=== PATIENT | female | born 1980 | race Caucasian/White ===

== ENCOUNTER 2021-11-22 10:47 | Outpatient (CLI) | payer BC, MEDICAID, SELFPAY ==
--- NOTE | 2021-11-22 11:30 | CRLHL7_ITS ---
For Patients: As a result of the Century Cures Act, medical imaging exams and procedure reports are released immediately into your electronic medical record. You may view this report before your referring provider. If you have questions, please contact your health care provider. BILATERAL MAMMOGRAM WITH COMPUTER-AIDED DETECTION AND TOMOSYNTHESIS TECHNIQUE: CC and MLO views were obtained. These mammographic images have been obtained using full-field digital technique. These mammographic images were interpreted with the benefit of computer-aided detection. Breast Tomosynthesis was used in this interpretation. COMPARISON FILM: 10/25/2020, 10/22/2019, 09/23/2018. FINDINGS: The breasts are heterogeneously dense, which may obscure small masses IMPRESSION: There is no radiographic evidence for malignancy. ASSESSMENT: BI-RADS Category 1: Negative RECOMMENDATION: Routine screening mammogram in 1 year. A lay language report of this examination will be provided to the patient. Francis Bowens M.D. Diagnostic Radiologist [email or web address] JOES R/senait sapp/Dictated by: Francis Bowens MD @ 11/22/2021 12:24:00 PM (Electronically Signed)
== END 2021-11-22 10:48 | disposition home or self-care (01) ==
LOC: MAMMO 10:49
PROVIDERS: PCP Physician Assistant Medical; Visit Provider Physician Assistant Medical
DX: Z12.31 Encounter for screening mammogram for malignant neoplasm of breast (principal); R92.2 Inconclusive mammogram
CPT/HCPCS: 77063; 77067

== ENCOUNTER 2021-12-20 20:44 | Emergency (ER) | payer BC, MEDICAID, SELFPAY ==
[2021-12-20 21:41] VITALS: BP 117/79; PULSE 63; RESP 20; TEMP 35.7; O2SAT 97; BMI 31.1
[2021-12-20] MEDS: OXYMETAZOLINE (AFRIN) SOAK 1 EACH TOPICAL (23:14)
[2021-12-20 23:20] LABS: SARS PCR* Negative SARS-CoV-2 (Negative)
--- NOTE | 2021-12-20 23:38 | ED_ITS ---
HPI - General Adult General Chief complaint: Ear/Nose/Throat Problem Stated complaint: POSSIBLE COVID,SINUS PRESSURE Time Seen by Provider: 12/20/21 21:46 History of Present Illness HPI narrative: 41yo female patient presents to the ED with acute complaints of nasal congestion, pressure, and cough for approximately 3 days. The patient denies nausea, vomiting, or diarrhea. The patient states that she has had COVID in the past, and the symptoms are similar. She is uncertain if she has had fever. She has tried no treatment prior to arrival. The patient denies known sick contact. The patient has no other acute concerns or complaints. See nursing notes for details. Related Data Home Medications Medication Instructions Recorded Confirmed diclofenac sodium 75 mg 75 mg PO PRN 12/20/21 tablet,delayed release ferrous sulfate 325 mg (65 mg 325 mg PO DAILY 12/20/21 12/20/21 iron) tablet gabapentin 300 mg capsule 300 mg Q12H PRN 12/20/21 Previous Rx's Medication Instructions Recorded cefdinir 300 mg capsule 300 mg PO BID #10 caps 12/20/21 Allergies Allergy/AdvReac Type Severity Reaction Status Date / Time venom-honey bee Allergy Verified 12/20/21 21:45 Review of Systems Const: Reports: fever, fatigue and malaise; Denies: chills or night sweats Eyes: Denies: change in vision or blurry vision ENMT: Reports: throat pain, nasal discharge and nasal congestion; Denies: throat swelling, difficulty swallowing, mouth pain, ear pain or vertigo Cardio: Reports: shortness of breath with exertion; Denies: chest pain, palpitations, swelling of feet/ankles, shortness of breath when lying down or bluish discoloration of hands/feet Resp: Reports: shortness of breath and cough; Denies: wheezing or chest congestion GI: Denies: abdominal pain, nausea, vomiting, diarrhea, constipation or difficulty swallowing Integ/Breast: Denies: rash or redness Neuro: Reports: headache; Denies: numbness in extremities, weakness in extremities, lack of coordination, dizziness, vertigo or difficulty communicating thoughts Psych: Denies: anxiety Endo: Reports: fatigue; Denies: excessive urination Allergy/Immuno: Denies: throat swelling or wheezing PFSH PFSH Social History Smoking Status: Never smoker Do you use any of these nicotine containing products: None Second hand tobacco smoke exposure: No How often do you have a drink containing alcohol: never AUDIT-C Alcohol total score: 0 Non-prescribed substance use: denies use Exam Const: Vital Signs, click to edit/add: Vital Signs - 24 hr 12/20/21 21:41 Temperature 96.3 F L Pulse Rate [Right Pulse Oximeter] 63 Respiratory Rate 20 Blood Pressure [Ri ght Upper Arm] 117/79 Pulse Oximetry 97 Oxygen Delivery Me thod Room Air Documenting provider has reviewed patient's vital signs: yes Common normals: no apparent distress, oriented x3, no limitations, healthy appearing, alert and well nourished General appearance: cooperative, comfortable and ill appearing; not in distress Orientation/consciousness: Yes awake, Yes oriented to person, Yes oriented to place and Yes oriented to time HENMT: Common normals: normocephalic, head/scalp atraumatic, hearing grossly normal bilaterally, TM's normal bilaterally (with air fluid levels bilaterally without erythema, but bulge noted), external nose normal and nasal mucous membranes and turbinates normal Head and scalp: normal to inspection, normocephalic and atraumatic Nose: external nose normal and nasal mucous membranes and turbinates normal Tympanic membrane: TM's normal bilaterally (with air fluid levels bilaterally without erythema, but bulge noted) Mouth: oral and palatal mucosa normal Throat: posterior oropharynx normal Eye: Common normals: PERRL and EOMs intact bilaterally General eye: normal appearance of both eyes Pupil: PERRL Neck & C-Spine: Common normals: full ROM, no lymphadenopathy and supple Resp: Common normals: normal respiratory effort, no use of accessory muscles and clear to auscultation bilaterally Effort & inspection: able to speak in complete sentences; no respiratory distress Auscultation: clear to auscultation bilaterally; no crackles and no wheezes Cardio: Common normals: regular rate, regular rhythm, S1 normal heart sound, S2 normal heart sound, no gallops, no murmurs and peripheral pulses 2+ throu ghout Rate: regular rate Rhythm: regular rhythm Heart sounds: S1 normal and S2 normal Peripheral pulses: pulses 2+ throughout GI: Common normals: Normal to inspection, nondistended, normoactive bowel sounds present, soft to palpation and non-tender Palpation: soft Extremity: Common normals: normal to inspection, full ROM and normal capillary refill Neuro: Common normals: oriented x3, CN's II-XII intact bilaterally, moves all extremities, no focal motor deficits and no sensory deficits noted Sensorium/orientation: awake, alert, oriented to person, oriented to place and oriented to time Speech: speech normal Gait (neuro): normal gait Motor exam: strength 5/5 throughout Psych: Common normals: mental status grossly normal, thought process normal, speech normal and activity/motor behavior normal Appearance: grossly normal Attitude: calm Speech: normal speech Thought process: normal thought process Thought content: normal thought content Attention/concentration: attention grossly intact Memory/cognition: memory grossly intact Insight: insight good Judgement: judgment good Skin: Common normals: no rashes or lesions noted General skin exam: no rashes or lesions noted Course Reevaluation(s) Reevaluation #1: Patient reports some improvement in symptoms with afrin. Patient's vital signs have remained stable. The results were discussed, and the patient verbalized understanding. Reasons for follow-up or return were discussed. Vital Signs Vital signs: Initial Vital Signs Temperature 96.3 F L 12/20/21 21:41 Temperature Source Temporal Artery Scan 12/20/21 21:41 Pulse Rate 63 12/20/21 21:41 Respiratory Rate 20 12/20/21 21:41 Blood Pressure 117/79 12/20/21 21:41 Blood Pressure Mean 91 12/20/21 21:41 Blood Pressure Position Sitting 12/20/21 21:41 Pulse Oximetry 97 12/20/21 21:41 Oxygen Delivery Method 12/20/21 21:41 Vital Signs Temperature 96.3 F L 12/20/21 21:41 Pulse Rate 63 12/20/21 21:41 Respiratory Rate 20 12/20/21 21:41 Blood Pressure 117/79 12/20/21 21:41 Pulse Oximetry 97 12/20/21 21:41 Oxygen Delivery Method 12/20/21 21:41 Temperature 96.3 F L 12/20/21 21:41 Pulse Rate 63 12/20/21 21:41 Respiratory Rate 20 12/20/21 21:41 Blood Pressure 117/79 12/20/21 21:41 Pulse Oximetry 97 12/20/21 21:41 Oxygen Delivery Method 12/20/21 21:41 Medical Decision Making MDM Narrative Medical decision making narrative: Differential diagnoses include viral upper respiratory illness, pneumonia, infectious illness, bronchitis, asthma, reactive airway disease, chronic cough, medications side effects, allergic rhinitis with postnasal drip, foreign body aspiration, aspiration, bronchiolitis, and gastroesophageal reflux disease as well as multiple other considerations including chronic disease exacerbations. Lab Data Labs: Lab Results 12/20/21 Range/Units 21:46 SARS-CoV-2 (PCR) Negative SARS-CoV-2 (Negative) Discharge Plan Discharge Clinical Impression: Otitis media Patient Disposition: Home, Self-Care Condition: Stable Instructions: Ear Infection (ED) Additional Instructions: Thank you for choosing [facility]. We plan to treat with antibiotics should you not improve with attempting decongestant therapy. You should aggressively treat symptoms with: rest, increased fluids, and Ibuprofen and Tylenol as needed, and OTC medication of choice. You should eat and drink to ensure adequate intake. The patient is asked to return if developing respiratory distress, inability to eat or drink, decreased urine output, or other new/worsening symptoms develop. Additional discussion regarding the course of the illness, as well as helpful treatments, including use of a vaporizer/humidifier, steamed bathroom, or cool outdoor air. Arrange follow up visit if worsening or no improvement in symptoms in 1-2 weeks. The patient is asked to return if develops warning signs including fever >100.4, respiratory distress, lethargy, failure to hydrate with PO intake, or decreased urine output. Your care today was on an emergency basis and is not intended to be a substitute for on-going care with your primary physician. I recommend calling primary care for follow-up in the next 5-7 days for follow-up as needed and to review any labs, testing, or imaging you have had in the Emergency Department. If new or worsening symptoms develop or you have any concerns in the meantime, please call your primary care clinic or return to the ER for re-evaluation. Activity Level: No Restrictions and Activity as Tolerated Discharge Diet: Regular Prescriptions: New cefdinir 300 mg capsule 300 mg PO BID Qty: 10 0RF No Action ferrous sulfate 325 mg (65 mg iron) tablet 325 mg PO DAILY Label Comments: TAKE 1 TABLET BY MOUTH ONCE DAILY WITH A MEAL. gabapentin 300 mg capsule 300 mg Q12H PRN diclofenac sodium 75 mg tablet,delayed release (DR/EC) 75 mg PO PRN Follow Up/Referrals: Brianda Burleson PA-C [Primary Care Provider] - Stand Alone Forms: [employer] Info Instructions
== END 2021-12-20 23:57 | disposition home or self-care (01) ==
PROVIDERS: Emergency Provider Family Medicine; PCP Physician Assistant Medical
DX: H66.93 Otitis media, unspecified, bilateral (principal)
CPT/HCPCS: 87635; 99283; 99284

== ENCOUNTER 2022-08-29 10:26 | Outpatient (CLI) | payer BC, MEDICAID, SELFPAY ==
--- NOTE | 2022-08-29 10:45 | CRLHL7_ITS ---
For Patients: As a result of the Cures Act, medical imaging exams and procedure reports are released immediately into your electronic medical record. You may view this report before your referring provider. If you have questions, please contact your health care provider. DIGITAL DIAGNOSTIC BILATERAL MAMMOGRAM USING TOMOSYNTHESIS AND COMPUTER-AIDED DETECTION RIGHT BREAST ULTRASOUND INDICATION: 42-year-old female. Palpable lump inferior RIGHT breast. Family history of breast cancer. No personal history of breast cancer biopsies. COMPARISON: 11/22/2021, 10/25/2020. MAMMOGRAM: TECHNIQUE: CC and MLO views were obtained. This digital study was evaluated with the assistance of computer-aided detection. Digital breast tomosynthesis utilized. FINDINGS: Breast Composition: The breasts are heterogeneously dense which may obscure small masses. No suspicious microcalcifications or regions of architecture distortion identified in either breast. No mass identified in the inferior RIGHT breast in the area of the patient`s palpable abnormality. Ultrasound will be performed for further evaluation. Please see ultrasound report from the same date. The LEFT breast is negative and unchanged. IMPRESSION: Stable and negative mammograms. ULTRASOUND TECHNIQUE: Directed RIGHT breast ultrasound with this radiologist present. FINDINGS/IMPRESSION: The RIGHT breast is carefully scanned between the 5 and 7 o`clock position. Admeasurer images were obtained at the 6 o`clock position. Only normal breast tissue is identified. No underlying mass. No regions of architecture distortion. No shadowing. No cyst. These findings were discussed in detail with the patient. Any further workup or follow-up should be based on clinical grounds. Annual mammography is also recommended. BI-RADS Category 1: Negative Dictated by: Deepak Cyr MD @08/29/2022 11:50:34 AM / CRL:senait sapp/Dictated by: Deepak Cyr MD @ 08/29/2022 11:49:00 AM (Electronically Signed)
--- NOTE | 2022-08-29 11:15 | CRLHL7_ITS ---
For Patients: As a result of the Cures Act, medical imaging exams and procedure reports are released immediately into your electronic medical record. You may view this report before your referring provider. If you have questions, please contact your health care provider. PLEASE SEE DIGITAL DIAGNOSTIC BILATERAL MAMMOGRAM PERFORMED SAME DAY CRL:senait sapp/Dictated by: Deepak Cyr MD @ 08/29/2022 11:50:00 AM (Electronically Signed)
== END 2022-08-29 10:27 | disposition home or self-care (01) ==
LOC: MAMMO 10:27
PROVIDERS: PCP Physician Assistant Medical; Visit Provider Physician Assistant Medical
DX: N63.10 Unspecified lump in the right breast, unspecified quadrant (principal); N64.4 Mastodynia
CPT/HCPCS: 76642; 77066; G0279

== ENCOUNTER 2023-05-02 10:36 | Emergency (ER) | payer OTHER, MEDICAID, SELFPAY ==
[2023-05-02 10:39] VITALS: BP 117/83; PULSE 86; RESP 16; TEMP 36.2; O2SAT 99; BMI 31.1
--- NOTE | 2023-05-02 11:32 | ED.EAR ---
HPI - Ear Problem General Time Seen by Provider: 11:32 Date Seen: 05/02/23 Chief complaint: Ear/Nose/Throat Problem Stated complaint: R ear pain Time Seen by Provider: 05/02/23 11:32 Source: patient and RN notes reviewed Mode of arrival: ambulatory Limitations: no limitations History of Present Illness HPI Narrative: Suad is a very pleasant 42-year-old female with recent history of dental work with cavities a crown and right canal 1 week ago who comes to the emergency room with complaints of right ear pain. Patient notes that she awoke yesterday morning with some ear pain and has become much worse. It is associated with a slightly runny nose and sore throat on her right side. She also notes a low-grade fever today. She notes no complications from the dental surgery. She notes that she did have some jaw pain before the ear pain. She thinks she may have had some drainage from her right ear as well. Denies a cough. She is able to swallow even though she has discomfort on the right. Related Data Home Medications Medication Instructions Recorded Confirmed gabapentin 300 mg capsule 300 mg Q12H PRN 12/20/21 05/10/22 loratadine 5 mg-pseudoephedrine ER ea PO 01/20/22 05/10/22 120 mg tablet,extended release,12hr (Allergy Relief D12) Acetaminophen PO PRN 01/30/22 05/10/22 ibuprofen 200 mg tablet mg PO PRN 01/30/22 05/10/22 naproxen 500 mg tablet mg PO .Daily as needed PRN 01/30/22 05/10/22 Previous Rx's Medication Instructions Recorded diclofenac sodium 75 mg 75 mg PO DAILY PRN bck p #90 tabs 01/30/22 tablet,delayed release epinephrine 0.3 mg/0.3 mL 0.3 mg (0.3 mL) IM .prn #2 ea 08/21/22 injection, auto-injector omeprazole 20 mg capsule,delayed 20 mg PO QDAY PRN GERD #90 caps 08/21/22 release ferrous sulfate 325 mg (65 mg 325 mg PO DAILY #90 tabs 03/19/23 iron) tablet amoxicillin 875 mg-potassium 1 tab PO BID #7 tabs 05/02/23 clavulanate 125 mg tablet Allergies Allergy/AdvReac Type Severity Reaction Status Date / Time venom-honey bee Allergy Severe Anaphylaxis Verified 08/21/22 14:46 Review of Systems Status of ROS: Reports: 10 or more systems reviewed and unremarkable except as noted in History and below Const: Reports: fever and chills Eyes: Denies: change in vision ENMT: Reports: throat pain, difficulty swallowing, mouth pain, ear pain, ear discharge and nasal congestion; Denies: neck pain, throat swelling, hoarseness or swelling of lips/tongue Cardio: Denies: chest pain or shortness of breath with exertion Resp: Denies: shortness of breath or cough GI: Reports: difficulty swallowing; Denies: abdominal pain, nausea or vomiting Musculo: Denies: neck pain Neuro: Reports: headache Allergy/Immuno: Denies: throat swelling PFSH PFSH Medical History Alopecia ?L65.9 - Nonscarring hair loss, unspecified (ICD-10) Uterine leiomyoma ?D25.9 - Leiomyoma of uterus, unspecified (ICD-10) Poor historian ?Z78.9 - Other specified health status (ICD-10) 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) History of pre-eclampsia (2014) ?Z87.59 - Personal history of other complications of , childbirth and the puerperium (ICD-10) History of ovarian cyst (09/2020) ?Z87.42 - Personal history of other diseases of the female genital tract (ICD-10) History of infertility (09/2020) ?Z87.42 - Personal history of other diseases of the female genital tract (ICD-10) History of gestational diabetes mellitus (GDM) (2014) ?Z86.32 - Personal history of gestational diabetes (ICD-10) Hemorrhagic cyst of ovary ?N83.209 - Unspecified ovarian cyst, unspecified side (ICD-10) Advanced maternal age during (09/04/14) Hx of anaphylaxis ?Z87.892 - Personal history of anaphylaxis (ICD-10) Surgical History History of tubal ligation (01/15/15) ?Z98.51 - Tubal ligation status (ICD-10) History of elective (2000) ?Z98.890 - Other specified postprocedural states (ICD-10) History of section (01/15/15) ?Z98.891 - History of uterine scar from previous surgery (ICD-10) Family History Aunt Breast cancer Mother Diabetes Coronary artery disease Paternal Grandfather Diabetes High cholesterol Stroke Maternal Grandfather Coronary artery disease Diabetes Stroke Father Diabetes High cholesterol High blood pressure FH: stomach cancer Sister Breast cancer, Onset Age: 30 Social History Smoking Status: Never smoker Do you use any of these nicotine containing products: None Second hand tobacco smoke exposure: No How often do you have a drink containing alcohol: never AUDIT-C Alcohol total score: 0 Non-prescribed substance use: denies use Little interest or pleasure in doing things: not at all Feeling down, depressed, or hopeless: not at all Exam Narrative: Exam Narrative: Alert and oriented. She is nontoxic in appearance. Eyes are clear. Left TM within normal limits. Right TM shows some retraction and loss of light reflex but I do not see any obvious infection. The ear canal itself is without lesions or debris. Patient did have discomfort with external movement of the ear. Neck is supple. I do not palpate any lymphadenopathy. Oral cavity with moist mucous membranes. In the posterior oropharynx she does have some exudate noted on the left posterior tonsil. No trismus with this exam. No foul smell. No extensive erythema. Heart with regular rate and rhythm and lungs are clear to auscultation. In the oral cavity if I palpate over the right lower dental line she does have discomfort although visually I cannot detect any unusual erythema or areas of swelling. Const: Vital Signs, click to edit/add: Vital Signs - 24 hr 05/02/23 10:39 Temperature 97.2 F L Pulse Rate [Pulse Oximeter] 86 Respiratory Rate 16 Blood Pressure [Ri ght Upper Arm] 117/83 Pulse Oximetry 99 Oxygen Delivery Me thod Room Air Documenting provider has reviewed patient's vital signs: yes Course Course ED Course: At this time suspect either patient has overlying viral infection or strep with a coincidence that she had dental work or she has a dental infection with radiation of the discomfort to the right ear. I have discussed with patient the use of Augmentin as an antibiotic to cover a potential strep or dental infection. It may be that she has COVID or influenza or RSV but I would still want to cover the dental infection as she has discomfort on the right side. She is in agreement with this plan. We will not have her wait for results but go ahead and allow her depart and call her with the results. Vital Signs Vital signs: Initial Vital Signs Temperature 97.2 F L 05/02/23 10:39 Temperature Source Temporal Artery Scan 05/02/23 10:39 Pulse Rate 86 05/02/23 10:39 Respiratory Rate 16 05/02/23 10:39 Blood Pressure 117/83 05/02/23 10:39 Blood Pressure Mean 94 05/02/23 10:39 Blood Pressure Position Sitting 05/02/23 10:39 Pulse Oximetry 99 05/02/23 10:39 Oxygen Delivery Method Room Air 05/02/23 10:39 Vital Signs Temperature 97.2 F L 05/02/23 10:39 Pulse Rate 86 05/02/23 10:39 Respiratory Rate 16 05/02/23 10:39 Blood Pressure 117/83 05/02/23 10:39 Pulse Oximetry 99 05/02/23 10:39 Oxygen Delivery Method Room Air 05/02/23 10:39 Temperature 97.2 F L 05/02/23 10:39 Pulse Rate 86 05/02/23 10:39 Respiratory Rate 16 05/02/23 10:39 Blood Pressure 117/83 05/02/23 10:39 Pulse Oximetry 99 05/02/23 10:39 Oxygen Delivery Method Room Air 05/02/23 10:39 Medical Decision Making MDM Narrative Medical decision making narrative: 1. Right otalgia-patient noted have discomfort with movement of the right ear but there is no evidence of debris within the ear and there is no evidence of significant otitis media. I wonder if this is radiation of discomfort from recent dental surgery as we now learned that her strep and viral swabs are negative. Would have her use Augmentin 875 p.o. b.i.d. x7 days. Patient tells me that she already has an appointment on May 08 with the dentist. They may want to extend her antibiotics at that time if needed. Suggest alternating ibuprofen and Tylenol as needed for discomfort. Return to the emergency room for worsening symptoms and as needed. At this time patient noted to be able to swallow, has no trismus, no significant palpable mass or lymphadenopathy to suggest the need for imaging. However if she does return this may be considered. 2. Disposition-home at this time. Return as needed for worsening symptoms. Medical Records Medical records reviewed: Yes I reviewed the patient's medical records Lab Data Lab results reviewed: Yes I reviewed the patient's lab results Labs: Lab Results 05/02/23 Range/Units 11:50 Group A Strep DNA NOT DETECTED (Not Detectd) Discharge Plan Discharge Clinical Impression: Acute pain of right ear Patient Disposition: Home, Self-Care Condition: Unchanged Instructions: Earache (ED) Additional Instructions: Suggest alternating ibuprofen and Tylenol every 4 hours for fever or pain relief. Augmentin will be used for potential treatment of early ear infection versus dental infection. This would also cover a strep infection. I will call you with the results of your swabs. Please ensure that the nurses have your correct phone number. Rest, seek medical attention for worsening symptoms. Prescriptions: New amoxicillin-pot clavulanate 875-125 mg tablet 1 tab PO BID Qty: 7 0RF No Action Allergy Relief D12 5-120 mg tablet extended release 12 hr PO Patient Comments: TAKE 1 TABLET BY MOUTH TWICE NENA. Acetaminophen PO PRN ibuprofen 200 mg tablet PO PRN naproxen 500 mg tablet PO .Daily as needed PRN diclofenac sodium 75 mg tablet,delayed release (DR/EC) 75 mg PO DAILY PRN (Reason: bck p) Qty: 90 1RF Rx Instructions: once daily as needed for back pain omeprazole 20 mg capsule,delayed release(DR/EC) 20 mg PO QDAY PRN (Reason: GERD) Qty: 90 1RF epinephrine 0.3 mg/0.3 mL auto-injector 0.3 mg IM .prn Qty: 2 1RF Rx Instructions: as a single dose; may repeat once gabapentin 300 mg capsule 300 mg Q12H PRN ferrous sulfate 325 mg (65 mg iron) tablet 325 mg PO DAILY Qty: 90 0RF Follow Up/Referrals: Brianda Burleson PA-C [Primary Care Provider] - Stand Alone Forms: [employer] Info Instructions
--- OUTSIDE RECORDS SUMMARY | 2023-05-02 11:54 | XMS_ITS | Continuity of Care Document ---
Author Name Unknown Organization [facility] Address [address] [place] [address] Phone Care Team Providers Care Senior Asp Net Developer Name Role Phone Ashlee Cummins Unavailable Unavailable Allergies, Adverse Reactions, Alerts Substance Reaction Status Criticality venom-honey bee Active No Informati on Medications Medication Instructions Dosage Effective Dates (start - stop) Status Comments DICLOFENAC SOD EC 75 MG TAB TAKE 1 TABLET BY ORAL ROUTE UP TO 2 TIMES PER DAY WITH FOOD - Active Medrol (Rupert) 4 mg tablets in a dose pack take by Oral route as written on package Not Available - Active Neurontin 300 mg capsule TAKE 1 CAPSULE BY MOUTH EVERYDAY AT BEDTIME - Active prednisone 10 mg tablet take 4 tabs once daily x 5 days, 2 tabs once daily x 7 days, 1 tab once daily x 10 days. Take with food. - Active Mobic 15 mg tablet take 1 tablet by oral route every day with food - Active PRILOSEC (unknown strength) Not Available - Active TYLENOL (unknown strength) Not Available - Active diclofenac sodium 75 mg tablet,delayed release take 1 tablet by oral route up to 2 times per day with food - No Longer Active Procedures Procedure Date OFFICE/OUTPATIENT VISIT EST Phone Office/Outpatient Visit,Est, Mod 2022 Office/Outpatient Visit,Est, Mod 2021 Office/Outpatient Visit,Est, Mod 2020 Office/Outpatient Visit,Est, Mod 2019 Office/Outpatient Visit,Est, Mod 2018 Office/Outpatient Visit,Est, Mod 2018 Office/Outpatient Visit,Est, Mod 2018 Office/Outpatient Visit,Est, Mod 2016 X-Ray Exam Lwr Spine, Min 4 Views Office/Outpatient Visit,Est, Mod 2016 Office/Outpatient Visit,Est, Mod 2015 Office/Outpatient Visit,New, Mod 2015 Advance Directives Directive Yes / No Effective Date File Name No Information Encounters Encounter Description Practice Location Reason(s) For Visit Diagnoses Date Provider Providers Copied on Encounter [facility], [address], [place], [address] , [place] tel: [phone] No Information 3 [facility]. [facility], [address], [place], [address] , [place]. tel: [phone] [facility], [address], [place], [address] , [place] tel: [phone] [facility] No Information 3 [facility]. [facility], [address] [place] [address] [address], [place], [address] , [place]. tel: [phone] [facility], [address], [place], [address] , [place] tel: [phone] [facility] No Information 3 [facility]. [facility], [address] [place] [address] 600, [place], [address] , [place]. tel:[phone] OFFICE/OUTPAT IENT VISIT EST Phone [facility], [address], [place], [address] , [place] tel: [phone] [facility] Other intervertebral disc degeneration of lumbar regionOther spondylosis, lumbosacral region 3 [facility]. [facility], [address] [facility] [address], [place], [address] , [place]. tel: [phone] Referring Provider: Ashlee Lombardo, [facility] [address], [place], [address] . tel:[phone] Office/Outpat ient Visit,Est, Mod [facility], [address], [place], [address] , [place] tel: [phone] [facility] Other intervertebral disc degeneration of lumbar regionOther spondylosis, lumbosacral region 3 Ernie Rosado. [facility], [address] [place] [address] [address], [place], [address] , [place]. tel: [phone] Referring Provider: Ashlee Lombardo, [facility] [place] [address], [place], [address] . tel:[phone] Office/Outpat ient Visit,Est, Mod [facility], [address], [place], [address] , [place] tel: [phone] [facility] Other intervertebral disc displacement, lumbar regionOther intervertebral disc degeneration of lumbar regionOther spondylosis, lumbosacral region 2 Ernie Rosado. [facility], [address] [place] [address] [address], [place], [address] , [place]. tel: [phone] Referring Provider: Ashlee Lmobardo, [facility] [address], [place], [address] . tel:[phone] Office/Outpat ient Visit,Est, Mod [facility], [address], [place], [address] , [place] tel: [phone] [facility] Other intervertebral disc degeneration of lumbar regionOther intervertebral disc displacement, lumbar regionOther spondylosis, lumbosacral region 1 Ernie Rosado. [facility], [address], [place], [address] , [place]. tel: [phone] Referring Provider: Ashlee Lombardo, [facility] [address] [place] [address], [place], [address] . tel:[phone] Office/Outpat ient Visit,Est, Mod [facility], [address], [place], [address] , [place] tel: [phone] [facility] Other intervertebral disc displacement, lumbar regionOther intervertebral disc degeneration of lumbar regionOther spondylosis, lumbosacral region 0- 0 Ernie Geeher. [facility] [place], [address], [facility] [place], [address] , [place]. tel: [phone] Referring Provider: Ashlee Lombardo, [facility] [place] [address], [place], [address] . tel:[phone] Office/Outpat ient Visit,Est, Mod [facility], [address], [place], [address] , [place] tel: [phone] [facility] Other intervertebral disc displacement, lumbar regionOther intervertebral disc degeneration of lumbar region 9 Ernie Rosado. [facility], [address] [place] [address] [address], [place], [address] , [place]. tel: [phone] Referring Provider: Ashlee Lombardo, [facility] [address] [place] [address] [address], [place], [address] . tel:[phone] Office/Outpat ient Visit,Est, Mod [facility], [address], [place], [address] , [place] tel: [phone] [facility] Other intervertebral disc displacement, lumbar regionOther intervertebral disc degeneration of lumbar region 9 Ernie Rosado. [facility] [place], [address] [place] [address] [address], [place], [address] , [place]. tel: [phone] Referring Provider: Ashlee Lombardo, [facility] [address], [place], [address] . tel:[phone] Office/Outpat ient Visit,Est, Mod [facility], [address], [place], [address] , [place] tel: [phone] [facility] Other intervertebral disc degeneration of lumbar regionOther intervertebral disc displacement, lumbar region 9 Ernie Rosado. [facility] [place], [address], [place], [address] , [place]. tel: [phone] Referring Provider: Ashlee Lombardo, [facility] [place] [address], [place], [address] . tel:[phone] Office/Outpat ient Visit,Est, Mod [facility], [address], [place], [address] , [place] tel: [phone] [facility] Other intervertebral disc displacement, lumbar regionOther intervertebral disc degeneration of lumbar regionSacroiliitis 7 Ernie Rosado. [facility] [place], [address], [place], [address] , [place]. tel: [phone] Referring Provider: Ashlee Lombardo, [facility] [place] [address], [place], [address] . tel:[phone] Office/Outpat ient Visit,Est, Mod [facility], [address], [place], [address] , [place] tel: [phone] [facility] Other intervertebral disc displacement, lumbar region 7 Ernie Rosado. [facility] [place], [address] [place] [address] 600, [place], [address] , [place]. tel: [phone] Referring Provider: Referring Self, [address] [place] [address] [address], [place], [address]. tel:[phone] Office/Outpat ient Visit,Est, Mod [facility], [address], [place], [address] , [place] [phone] [facility] Other intervertebral disc displacement, lumbar region 6 Ernie Rosado. [facility], [address], [place], [address] , [place]. [phone] Referring Provider: Ashlee Lombardo, [facility] [address] [place] [address], [facility] [place], [address] . tel:[phone] Office/Outpat ient Visit,New, Mod [facility], [address], [place], [address] , [place] [phone] [facility] Other intervertebral disc displacement, lumbar regionRadiculopathy , lumbar region 6 Ernie Rosado. [facility], [address], [facility], [address] , [place]. [phone] Referring Provider: Atiya Petersen, [facility] [address] [place], [address]. tel:[phone] Family History Family Member Type Diagnosis Age At Onset No Information Payers Payer name Insurance type Covered green [place] [id number] [place] [id number] [facility] 2021 CI [id number] Social History Type Description Quantity Date Captured Comments Sex Female Smoking Status No Information Chief Complaint And Reason For Visit No Information Reason For Referral Reason For Referral No Information Plan Of Treatment Date Type Action Status Future Order: Radiology Order Fa cet Joint Block Lumbar (FECETJNTBLKLUM), Ordered on: Ordered Future Order: Radiology Order AP -[id number]-[id number]-Cnp Lum (APLatFlExL), Ordered on: Ordered History Of Present Illness Encounter Date Complaint History Of Prese nt Illness No Information Functional Status Date Functional Assessmen t No Information Instructions Date Instruction Additional Infor amarjit Weight Management Education Rela darnell to Overweight Weight management: I nstructed to return to General Practitioner timeframe: 1 Month. Related to Overweight Weight Management Education Rela darnell to Overweight Weight management: I nstructed to return to General Practitioner timeframe: 1 Month. Related to Overweight Weight Management Education Rela darnell to Overweight Weight management: I nstructed to return to General Practitioner timeframe: 1 Month. Related to Overweight Weight Management Education Rela darnell to Overweight Weight management: I nstructed to return to General Practitioner timeframe: 1 Month. Related to Overweight Assessments Type Assessment Date No Information Patient Care Teams Name Effective Dates (start - stop) Status Members No Information
--- OUTSIDE RECORDS SUMMARY | 2023-05-02 11:54 | XMS_ITS | Continuity of Care Document ---
Author Name Unknown Organization [facility] Address [address] [place] [address] Phone Care Team Providers Care Mental Health Practitioner Name Role Phone Ashlee Cummins Unavailable Unavailable [...] [place], [address], [place], [address] , [place] tel: [phone] No Information 3 [facility]. [facility], [address], [place], [address] , [place]. tel: [phone] [facility], [address], [place], [address] , [place] tel: [phone] [facility] No Information 3 [facility]. [facility], [address] [place] [address] 600, [place], [address] , [place]. tel: [phone] [facility], [address], [place], [address] , [place] tel: [phone] [facility] No Information 3 [facility]. [facility], [address] [place] [address] 600, [place], [address] , [place]. tel:[phone] OFFICE/OUTPAT IENT VISIT EST Phone [facility], [address], [place], [address] , [place] tel: [phone] [facility] Other intervertebral disc degeneration of lumbar regionOther spondylosis, lumbosacral region 3 [facility]. [facility], [address] [facility] [address], [place], [address] , [place]. tel: [phone] Referring Provider: Ashlee Lombardo, [facility] [address] [facility] [address], [place], [address] . tel:[phone] Office/Outpat ient Visit,Est, Mod [facility], [address], [place], [address] , [place] tel: [phone] [facility] Other intervertebral disc degeneration of lumbar regionOther spondylosis, lumbosacral region 3 Ernie Rosado. [facility], [address] [place] [address] 600, [place], [address] , [place]. tel: [phone] Referring Provider: Ashlee Lombardo, [facility] [place] [address], [place], [address] . tel:[phone] Office/Outpat ient Visit,Est, Mod [facility], [address], [place], [address] , [place] tel: [phone] [facility] Other intervertebral disc displacement, lumbar regionOther intervertebral disc degeneration of lumbar regionOther spondylosis, lumbosacral region 2 Ernie Rosado. [facility], [address] [place] [address] 600, [place], [address] , [place]. tel: [phone] Referring Provider: Ashlee Lombardo, [facility] [address] [facility] [address], [place], [address] . tel:[phone] Office/Outpat ient Visit,Est, Mod [facility], [address], [place], [address] , [place] tel: [phone] [facility] Other intervertebral disc degeneration of lumbar regionOther intervertebral disc displacement, lumbar regionOther spondylosis, lumbosacral region 1 Ernie Rosado. [facility], [address] [facility] [address], [place], [address] , [place]. tel: [phone] Referring Provider: Ashlee Lombardo, [facility] [address] [place] [address], [place], [address] . tel:[phone] Office/Outpat ient Visit,Est, Mod [facility], [address], [place], [address] , [place] tel: [phone] [facility] Other intervertebral disc displacement, lumbar regionOther intervertebral disc degeneration of lumbar regionOther spondylosis, lumbosacral region 0- 0 Ernie Geeher. [facility] [place], [address], [facility], [address] , [place]. tel: [phone] Referring Provider: Ashlee Lombardo, [facility] [place] [address], [place], [address] . tel:[phone] Office/Outpat ient Visit,Est, Mod [facility], [address], [place], [address] , [place] tel: [phone] [facility] Other intervertebral disc displacement, lumbar regionOther intervertebral disc degeneration of lumbar region 9 Ernie Rosado. [facility], [address] [place] [address] 600, [place], [address] , [place]. tel: [phone] Referring Provider: Ashlee Lombardo, [facility] [address] [place] [address] 600, [place], [address] . tel:[phone] Office/Outpat ient Visit,Est, Mod [facility], [address], [place], [address] , [place] tel: [phone] [facility] Other intervertebral disc displacement, lumbar regionOther intervertebral disc degeneration of lumbar region 9 Ernie Rosado. [facility] [place], [address] [place] [address] 600, [place], [address] , [place]. tel: [phone] Referring Provider: Ashlee Lombardo, [facility] [address], [place], [address] . tel:[phone] Office/Outpat ient Visit,Est, Mod [facility], [address], [place], [address] , [place] tel: [phone] [facility] Other intervertebral disc degeneration of lumbar regionOther intervertebral disc displacement, lumbar region 9 Ernie Rosado. [facility] [place], [address], [place], [address] , [place]. tel: [phone] Referring Provider: Ashlee Lombardo, [facility] [place] [address], [place], [address] . tel:[phone] Office/Outpat ient Visit,Est, Mod [facility], [address], [place], [address] , [place] tel: [phone] [facility] Other intervertebral disc displacement, lumbar regionOther intervertebral disc degeneration of lumbar regionSacroiliitis 7 Ernie Rosado. [facility] [place], [address], [place], [address] , [place]. tel: [phone] Referring Provider: Ashlee Lombardo, [facility] [place] [address], [place], [address] . tel:[phone] Office/Outpat ient Visit,Est, Mod [facility], [address], [place], [address] , [place] tel: [phone] [facility] Other intervertebral disc displacement, lumbar region 7 Ernie Rosado. [facility] [place], [address] [place] [address] 600, [place], [address] , [place]. tel: [phone] Referring Provider: Referring Self, [address] [place] [address] [address], [place], [address]. tel:[phone] Office/Outpat ient Visit,Est, Mod [facility], [address], [place], [address] , [place] [phone] [facility] Other intervertebral disc displacement, lumbar region 6 Ernie Rosado. [facility], [address] [facility] [address], [place], [address] , [place]. [phone] Referring Provider: Ashlee Lombardo, [facility] [address] [facility] [address], [place], [address] . tel:[phone] Office/Outpat ient Visit,New, Mod [facility], [address], [place], [address] , [place] [phone] [facility] Other intervertebral disc displacement, lumbar regionRadiculopathy , lumbar region 6 Ernie Rosado. [facility], [address] [facility] [address], [facility] [place], [address] , [place]. [phone] Referring Provider: Atiya Petersen, [facility] [address] [place], [address]. tel:[phone] Family History Family Member Type Diagnosis Age At Onset No Information Payers Payer name Insurance type Covered alliance [place] [id number] [place] State [id number] [facility] 2021 CI [id number] Social History Type Description Quantity Date Captured Comments Sex Female Smoking Status No Information Chief Complaint And Reason For Visit No Information Reason For Referral Reason For Referral No Information Plan Of Treatment Date Type Action Status Future Order: Radiology Order Fa cet Joint Block Lumbar ([id number]), Ordered on: Ordered Future Order: Radiology Order AP -Omm-Nzmh-Ema Lum (APLatFlExL), Ordered on: Ordered History Of Present Illness Encounter Date Complaint History Of Prese nt Illness No Information Functional Status Date Functional Assessmen t No Information Instructions Date Instruction Additional Infor mation Weight management: I nstructed to return to [...] Weight Management Education Rela darnell to Overweight Assessments Type Assessment Date No Information Patient Care Teams Name Effective Dates (start - stop) Status Members No Information
[2023-05-02 12:30] LABS: Strep A DNA Probe* NOT DETECTED (Not Detectd)
[2023-05-02 12:39] LABS: PCR FLU A Negative PCR FLU A (Negative); PCR FLU B Negative PCR FLU B (Negative); PCR RSV Negative PCR RSV (Negative)
[2023-05-02 12:43] LABS: SARS PCR* Negative SARS-CoV-2 (Negative)
--- NOTE | 2023-05-02 12:46 | ED.NURSE ---
Pt called with negative results of all swabs.
== END 2023-05-02 12:00 | disposition home or self-care (01) ==
LOC: ED 11:52
PROVIDERS: Emergency Provider Family Medicine; PCP Physician Assistant Medical
DX: H92.01 Otalgia, right ear (principal); K08.89 Other specified disorders of teeth and supporting structures
CPT/HCPCS: 87631; 87651; 99283; 99284

== ENCOUNTER 2023-05-29 11:00 | Emergency (ER) | payer OTHER, MEDICAID, SELFPAY ==
[2023-05-29 11:11] VITALS: BP 123/81; PULSE 71; RESP 18; TEMP 36.4; O2SAT 98; BMI 31.1
--- NOTE | 2023-05-29 11:33 | ED_ITS ---
HPI - Fever General Date Seen: 05/29/23 Chief Complaint: Fever Stated Complaint: Fever, cough Time Seen by Provider: 05/29/23 11:01 Source: patient Mode of arrival: ambulatory Limitations: no limitations History of Present Illness HPI Narrative: Patient is a 42-year-old female presenting to the emergency department for a fever. She states her daughter has been having upper respiratory symptoms of past 3 days then today patient woke up with a fever and muscle aches. She states she took Tylenol and ibuprofen and the fever has since resolved but she is still feeling fatigued and tired. Denies sore throat, chest pain, shortness of breath, nausea/vomiting, diarrhea, constipation, weakness, numbness, abdominal pain. Denies any other concerns at this time. 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 Related Data Home Medications Medication Instructions Recorded Confirmed gabapentin 300 mg capsule 300 mg Q12H PRN 12/20/21 05/10/22 loratadine 5 mg-pseudoephedrine ER ea PO 01/20/22 05/10/22 120 mg tablet,extended release,12hr (Allergy Relief D12) Acetaminophen PO PRN 01/30/22 05/10/22 ibuprofen 200 mg tablet mg PO PRN 01/30/22 05/10/22 naproxen 500 mg tablet mg PO .Daily as needed PRN 01/30/22 05/10/22 Previous Rx's Medication Instructions Recorded diclofenac sodium 75 mg 75 mg PO DAILY PRN bck p #90 tabs 01/30/22 tablet,delayed release epinephrine 0.3 mg/0.3 mL 0.3 mg (0.3 mL) IM .prn #2 ea 08/21/22 injection, auto-injector omeprazole 20 mg capsule,delayed 20 mg PO QDAY PRN GERD #90 caps 08/21/22 release ferrous sulfate 325 mg (65 mg 325 mg PO DAILY #90 tabs 03/19/23 iron) tablet amoxicillin 875 mg-potassium 1 tab PO BID #7 tabs 05/02/23 clavulanate 125 mg tablet Allergies Allergy/AdvReac Type Severity Reaction Status Date / Time venom-honey bee Allergy Severe Anaphylaxis Verified 08/21/22 14:46 Review of Systems Status of ROS Reports: 10 or more systems reviewed and unremarkable except as noted in History and below [facility] Medical History Alopecia ?L65.9 - Nonscarring hair loss, unspecified (ICD-10) Uterine leiomyoma ?D25.9 - Leiomyoma of uterus, unspecified (ICD-10) Poor historian ?Z78.9 - Other specified health status (ICD-10) 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) History of pre-eclampsia (2014) ?Z87.59 - Personal history of other complications of , childbirth and the puerperium (ICD-10) History of ovarian cyst (09/2020) ?Z87.42 - Personal history of other diseases of the female genital tract (ICD-10) History of infertility (09/2020) ?Z87.42 - Personal history of other diseases of the female genital tract (ICD-10) History of gestational diabetes mellitus (GDM) (2014) ?Z86.32 - Personal history of gestational diabetes (ICD-10) Hemorrhagic cyst of ovary ?N83.209 - Unspecified ovarian cyst, unspecified side (ICD-10) Advanced maternal age during (09/04/14) Hx of anaphylaxis ?Z87.892 - Personal history of anaphylaxis (ICD-10) Surgical History History of tubal ligation (01/15/15) ?Z98.51 - Tubal ligation status (ICD-10) History of elective (2000) ?Z98.890 - Other specified postprocedural states (ICD-10) History of section (01/15/15) ?Z98.891 - History of uterine scar from previous surgery (ICD-10) Family History Aunt Breast cancer Mother Diabetes Coronary artery disease Paternal Grandfather Diabetes High cholesterol Stroke Maternal Grandfather Coronary artery disease Diabetes Stroke Father Diabetes High cholesterol High blood pressure FH: stomach cancer Sister Breast cancer, Onset Age: 30 Social History Smoking Status: Never smoker Do you use any of these nicotine containing products: None Second hand tobacco smoke exposure: No How often do you have a drink containing alcohol: never AUDIT-C Alcohol total score: 0 Non-prescribed substance use: denies use Little interest or pleasure in doing things: not at all Feeling down, depressed, or hopeless: not at all Exam Narrative Exam Narrative: Const: Well-nourished, Well-developed, in mild distress Eyes: PERRL, no conjunctival injection, and symmetrical lids HENT: Atraumatic external nose and ears. Moist mucous membranes. Neck: Symmetric, trachea midline, No thyromegaly. CVS: RRR, No murmurs or gallops. Peripheral pulses 2+ and equal in all extremities RESP: Unlabored respiratory effort. Clear to auscultation bilaterally. GI: Nontender/Nondistended, No rebound or guarding. MSK:Extremities w/o deformity, Normal Active ROM Skin: Warm, Dry. No rashes or lesions. Neuro: Normal Muscle tone, No focal neurological deficits. Psych: Awake, Alert, & Oriented x3. Appropriate mood and affect. Const Vital Signs, click to edit/add: Vital Signs - 24 hr 05/29/23 11:11 05/29/23 11:11 Temperature 97.6 F Pulse Rate [Right Pulse Oximeter] 71 Respiratory Rate 18 Blood Pressure [Right Upper Arm] 123/81 Pulse Oximetry 98 Oxygen Delivery Method Room Air Room Air Course Vital Signs Vital signs: Initial Vital Signs Temperature 97.6 F 05/29/23 11:11 Temperature Source Temporal Artery Scan 05/29/23 11:11 Pulse Rate 71 05/29/23 11:11 Respiratory Rate 18 05/29/23 11:11 Respiratory Effort Normal, Spontaneous, Non-Labored 05/29/23 11:11 Respiratory Depth Normal 05/29/23 11:11 Blood Pressure 123/81 05/29/23 11:11 Blood Pressure Mean 95 05/29/23 11:11 Blood Pressure Position Sitting 05/29/23 11:11 Pulse Oximetry 98 05/29/23 11:11 Oxygen Delivery Method Room Air 05/29/23 11:11 Sepsis Recent Fever Within 48 Hours Yes 05/29/23 11:11 Sepsis New/Unexplained Change in Mental Status No 05/29/23 11:11 Sepsis Action Taken by Nursing No Action Required 05/29/23 11:11 Vital Signs Temperature 97.6 F 05/29/23 11:11 Pulse Rate 71 05/29/23 11:11 Respiratory Rate 18 05/29/23 11:11 Blood Pressure 123/81 05/29/23 11:11 Pulse Oximetry 98 05/29/23 11:11 Oxygen Delivery Method Room Air 05/29/23 11:11 Temperature 97.6 F 05/29/23 11:11 Pulse Rate 71 05/29/23 11:11 Respiratory Rate 18 05/29/23 11:11 Blood Pressure 123/81 05/29/23 11:11 Pulse Oximetry 98 05/29/23 11:11 Oxygen Delivery Method Room Air 05/29/23 11:11 MDM - Fever MDM Narrative Medical decision making narrative: Patient is a 42-year-old female presenting to emergency department for a fever. Brought to complaints of muscle aches a fever and this sounds like a viral etiology. Some having any chest pain and shortness of breath. Not believe imaging is necessary as pneumonia seems very unlikely. She is otherwise in good health with normal vital signs. COVID/flu/RSV swab ordered Lab Data Labs: Lab Results 05/29/23 Range/Units Unknown SARS-CoV-2 (PCR) Negative SARS-CoV-2 (Negative) Influenza Type A (PCR) POSITIVE PCR FLU A A (Negative) Influenza Type B (PCR) Negative PCR FLU B (Negative) RSV (PCR) Negative PCR RSV (Negative) Discharge Plan Discharge Clinical Impression: Influenza Patient Disposition: Home, Self-Care Condition: Stable Instructions: Influenza (DC) Additional Instructions: Take Tylenol and ibuprofen for the fever. Return to emergency department for new or worsening symptoms Prescriptions: No Action Allergy Relief D12 5-120 mg tablet extended release 12 hr PO Patient Comments: TAKE 1 TABLET BY MOUTH TWICE NENA. Acetaminophen PO PRN ibuprofen 200 mg tablet PO PRN naproxen 500 mg tablet PO .Daily as needed PRN diclofenac sodium 75 mg tablet,delayed release (DR/EC) 75 mg PO DAILY PRN (Reason: bck p) Qty: 90 1RF Rx Instructions: once daily as needed for back pain omeprazole 20 mg capsule,delayed release(DR/EC) 20 mg PO QDAY PRN (Reason: GERD) Qty: 90 1RF epinephrine 0.3 mg/0.3 mL auto-injector 0.3 mg IM .prn Qty: 2 1RF Rx Instructions: as a single dose; may repeat once amoxicillin-pot clavulanate 875-125 mg tablet 1 tab PO BID Qty: 7 0RF gabapentin 300 mg capsule 300 mg Q12H PRN ferrous sulfate 325 mg (65 mg iron) tablet 325 mg PO DAILY Qty: 90 0RF Follow Up/Referrals: Brianda Burleson PA-C [Primary Care Provider] - Stand Alone Forms: [facility] Info Instructions
--- OUTSIDE RECORDS SUMMARY | 2023-05-29 11:37 | XMS_ITS | Clinical Summary ---
Author Name Unknown Organization [facility] Address [address] [place] [id number] Care Team Providers Care Transcript Evaluator Name Role Phone Clinic - [facility] re Provider Allergies Active Allergy Reactions Criticality Noted Date Comments Bee Venom Anaphylaxis High 01/06/2020 Medications Medication Sig Dispensed Refills Start Date End Date Status EPINEPHrine (ANY BX GENERIC EQUIV) 0.3 MG/0.3ML injection 2-pack 0 09/03/2020 Active naproxen (NAPROSYN) 500 MG tablet Take 500 mg by mouth 0 06/09/2020 Active omeprazole (PRILOSEC) [address] capsule Take 20 mg by mouth 0 05/24/2021 Active loratadine-pseudoePHE Drine (CLARITIN-D 12-HOUR) 5-120 MG 12 hr tabletIndications:Con gestion of paranasal sinus Take 1 tablet by mouth 2 times daily 20 tablet 0 06/18/2021 Active Active Problems No known active problems Encounters Date Type Department Care Team Description 05/02/2023 Travel from Last 3 Months Immunizations Name Administration Dates Next Due COVID-19 MONOVALENT 12+ (Pfizer) 02/10/2021,010 12/2020,04/27/2020 Social History Tobacco Use Types Packs/Day Years Used Date Smoking Tobacco: Never Smokeless Tobacco: Never Adolescent Education Answer Date Record ed Getting School Help Needed Not on file 01/26 Sex and Gender Information Value Date Recorded Sex Assigned at Not on file Gender Identity Not on file Sexual Orientation Not on file Last Filed Vital Signs Vital Sign Reading Time Taken Comments Blood Pressure 118/66 12/06/2021 1:13 PM CDT Pulse 72 12/06/2021 1:13 PM CDT Temperature 36.4 ??C (97.6 ??F) 12/06/2021 1:13 PM CD T Respiratory Rate 16 12/06/2021 1:13 PM CDT Oxygen Saturation 97% 12/06/2021 1:13 PM CDT Inhaled Oxygen Concentration - - Weight 77.1 kg (170 lb) 12/06/2021 1:13 PM CDT Height - - Body Mass Index - - Plan of Treatment Health Maintenance Due Date Last Done Comments ADVANCE CARE PLANNING 1978 ANNUAL REVIEW OF HM ORDERS 1978 HEPATITIS B IMMUNIZATION (1 of 3 - 3-dose series) 1978 YEARLY PREVENTIVE VISIT 1978 HIV SCREENING 1993 HEPATITIS C SCREENING 1996 COVID-19 Vaccine ( season) 2023 02/10/2021, 05/14/2020, 04/27/2020 PHQ-2 (once per calendar year) 2023 PAP 11/16/2024 11/16/2021 DTAP/TDAP/TD IMMUNIZATION (2 - Td or Tdap) 09/01/2026 09/01/2016 INFLUENZA VACCINE Completed 01/04/2023, , 01/06/2021, Additional history exists HPV IMMUNIZATION Aged Out No longer e ligible based on patient's age to complete this topic IPV IMMUNIZATION Aged Out No longer e ligible based on patient's age to complete this topic MENINGITIS IMMUNIZATION Aged Out No l onger eligible based on patient's age to complete this topic Pneumococcal Vaccine: Pediatrics (0 to 5 Years) and At-Risk Patients (6 to 64 Years) Aged Out No longer eligible based on patient's age to complete this topic RSV MONOCLONAL ANTIBODY Aged Out No l onger eligible based on patient's age to complete this topic Care Teams Transcript Evaluator Relationship Specialty Start Date End Date Clinic - [facility] [address] [place] [address] PCP - General 01/25/20
--- OUTSIDE RECORDS SUMMARY | 2023-05-29 11:37 | XMS_ITS | Clinical Summary ---
Author Name Unknown Organization [facility] Address [place], [place] [address] Care Team Providers Care Conche Loader And Unloader Name Role Phone Kristyn Man MD Unavailable [phone] [facility] Phys Of Primary Care Provider Un available Allergies Active Allergy Reactions Criticality Noted Date Comments Venom-Honey Bee Anaphylaxis High 01/06/2020 Medications Medication Sig Dispensed Refills Start Date End Date Status acetaminophen (TYLENOL) 325 mg tablet Take 2 tablets by mouth every 4 hours if needed for Headache. Max acetaminophen dose: 4000mg in 24 hrs. 0 08/03/2009 Active gabapentin (NEURONTIN) 300 mg capsuleIndicati ons:Chronic right-sided low back pain without sciatica TAKE 1 CAPSULE (300 MG) BY MOUTH THREE TIMES DAILY NEEDED 90 Capsule 3 06/20/2022 Active Additional Information Patient taking differently: 300 mgOralDAILY, Reported on 12/07/2022 azelastine 137 mcg/actuation (ASTELIN) nasal sprayIndication s:Recurrent sinusitis INHALE 1 SPRAY INTO AFFECTED NOSTRIL(S) TWO TIMES DAILY. 30 mL 0 08/14/2022 Active EPINEPHrine (EPIPEN) 0.3 mg/0.3 mL auto-injector INJECT 0.3ML INTRAMUSCULARLY NEEDED A SINGLE DOSE MAY REPEAT ONCE 0 08/21/2022 Active omeprazole (PRILOSEC) 20 mg Delayed-Release capsuleIndicati ons:Chronic GERD Take 1 Capsule (20 mg) by mouth once daily before a meal. 90 Capsule 2 12/07/2022 Active ferrous sulfate 325 mg delayed release tabletIndicatio ns:Iron deficiency Take 1 Tablet (325 mg) by mouth once daily with a meal. 90 Tablet 3 12/07/2022 Active diclofenac (VOLTAREN) 75 mg delayed-release tabletIndicatio ns:Acute pain of right knee TAKE 1 TABLET BY MOUTH TWO TIMES DAILY WITH MEALS 60 Tablet 0 12/25/2022 Active fluticasone (50 mcg per actuation) nasal solution (FLONASE)Indica tions:Recurrent sinusitis INSTILL 2 SPRAYS TO BOTH NOSTRILS ONCE DAILY 48 mL 2 01/16/2023 Active clobetasol cream 0.05% (TEMOVATE) 0.05 % creamIndication s:Hand dermatitis Apply topically to affected area(s) two times daily. For hands 30 g 0 05/27/2023 Active clobetasol cream 0.05% (TEMOVATE) 0.05 % creamIndication s:Hand dermatitis Apply topically to affected area(s) two times daily. For hands 30 g 0 07/19/2022 4 Discontinu ed(Reorder (E-cancel not sent)) Active Problems Patient Care Coordination No te Formatting of this note migh t be different from the original. dheas and t estosterone May 2010 Problem Noted Date Diagnosed Date Skin tag of vulva 10/11/2022 Family history of breast cancer 07/19/2022 Overview: Sister- age 30 Pap smear for cervical cancer screening 01/26/20 22 Overview: 11/2021 NIL/HPV Negative Plan: Pap/HPV testing due in 5 years Pelvic pain 11/30/2021 Overactive bladder 11/30/2021 Urinary urgency 09/15/2020 Abnormal uterine bleeding 09/15/2020 Chronic right-sided low back pain without sciati ca 05/12/2020 Resolved Problems Problem Noted Date Diagnosed Date Resolved Date Routine general medical exam ination at a health care facility 05/23/2009 05/23/2022 Overview: Pap normal 03/15 Cholesterol- 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 05/23/2009 05/12/2020 Overview: - male factor: delayed ejaculation and oligomenorrhea - saw JORDY in 2009 - 2 cycles clomid here 08/14 and 09/13- good response and did IUI's Encounters Date Type Department Care Team Description 05/25/2023 Refill [facility] [address] [place] [address] Miki Mendoza MD Refill Request (Clobetasol/) from Last 3 Months Immunizations Name Administration Dates Next Due AMB Influenza, IIV4 PF (=>6 mos Flulaval,Fluzone Fluarix)(Flu Clinic Only) 02/24/2020 COVID-19 vaccine (deltaDNA [employer] 30mcg/0.3mL) PF, MDV 02/10/2021,05/14/2020,04/27/2020 Influenza RIV4 (Age 18+ Years) PRESERV FREE 06/2020 Influenza Virus, Unspecified 02/15/2015 Influenza, IIV4 01/01/2018 Influenza, IIV4 (=>6mos) MDV 02/04/2016 Influenza,CCIIV4 PRESERV FREE 01/05/2022, 020,01/07/2019 Tdap 09/01/2016 Family History Medical History Relation Name Comments Diabetes Father juvenile age 15 Diabetes Mother juvenile age 20 , strong Cancer-breast Sister Relation Name Status Comments Father Mother Sister Social History Tobacco Use Types Packs/Day Years Used Date Smoking Tobacco: Never Smokeless Tobacco: Never Alcohol Use Standard Drinks/Week Comments No 0 (1 standard drink = 0.6 oz pur e alcohol) PHQ-2 Answer Date Recorded PHQ-2 TOTAL SCORE 0 07/19/2022 Social Connections Answer Date Recorded Frequency of Communication with Friends and Fami ly 0 12/07/2022 Financial Resource Strain Answer Date R ecorded Difficulty of Paying Living Expenses 2 12/07/2022 Difficulty of Paying Living Expenses 1 12/07/2022 Food Insecurity Answer Date Recorded Worried About Running Out of Food in the Last Ye ar 1 12/07/2022 Transportation Needs Answer Date Record ed Lack of Transportation (Medical) 1 12/07/2022 Housing Stability Answer Date Recorded Unable to Pay for Housing in the Last Year 1 12/07/2022 Sex and Gender Information Value Date Recorded Sex Assigned at Not on file Gender Identity Not on file Sexual Orientation Not on file Obstetrics History Para Term AB IAB SAB Ectopic Multiple Livin g Live Births 5 1 1 0 4 1 1 0 0 1 Date Outcome GA Total Labor Labor/2nd/3rd Weight Sex Delivery Anes PTL Akanksha A1 A5 Name Cl in Term AB AB 2000 IAB 2003 SAB Last Filed Vital Signs Vital Sign Reading Time Taken Comments Blood Pressure 114/78 12/07/2022 1:32 PM CDT Pulse 72 12/07/2022 1:32 PM CDT Temperature 36.6 ??C (97.9 ??F) 07/19/2022 4 :16 PM CDT Respiratory Rate 16 05/30/2014 11:5 0 AM BUGGYMAN Oxygen Saturation 100% 05/30/2014 11: 50 AM [facility] Inhaled Oxygen Concentration - - Weight 81.8 kg (180 lb 4.8 oz) 12/08/19 1:32 PM CDT with shoes Height 158.1 cm (5' 2.25) 07/19/2022 4 :16 PM CDT Body Mass Index 32.71 07/19/2022 4:16 PM CDT Plan of Treatment Upcoming Encounters Date Type Department Care Team (Late st Contact Info) Description 05/31/2023 1:50 PM BUGGYMAN Office Visit [facility] [address] [place] [address] [place] [address] [place] [address] Health Maintenance Due Date Last Done Comments HIV for age 15-65 1993 Hepatitis C screening for age 18-79 1996 COVID-19 vaccine series ( season) 2023 02/10/2021, 05/14/2020, 04/27/2020 Influenza for age 9-49 01/05/2023 , 01/06/2021, 02/24/2020, Additional history exists BMI (ht and wt on same day) for age 18+ 07/20/2023 07/19/2022, 08/18/2021, 03/17/2020, Additional history exists Depression screening for age 12+ 07/20/2023 07/19/2022, 08/18/2021, 03/17/2020 Tetanus booster 09/01/2026 09/01/2016 Pap test for age 21-65 11/16/2026 2, 11/16/2021, 09/01/2016, Additional history exists Tdap Completed 09/01/2016 Pneumococcal series for age 6-64 Aged Out No longer eligible based on patient's age to complete this topic Care Teams Conche Loader And Unloader Relationship Specialty Start Date End Date Andrés Lou Of PCP - General 09/10/20 Kristyn Man MD Endocrinology Endocrinology 04/16/10
--- OUTSIDE RECORDS SUMMARY | 2023-05-29 11:37 | XMS_ITS | Encounter Summary ---
Author Name Unknown Organization [facility] Address [address] [place] [address]. [place] [address] Care Team Providers Care Harpoon Engagement Planning Operator Name Role Phone Clinic - [facility] Primary Ca re Provider Encounter Details Date Type Department Care Team (Latest Contact Info) Description 05/02/2023 Travel Social History Tobacco Use Types Packs/Day Years Used Date Smoking Tobacco: Never Smokeless Tobacco: Never Adolescent Education Answer Date Record ed Getting School Help Needed Not on file 01/26 Sex and Gender Information Value Date Recorded Sex Assigned at Not on file Gender Identity Not on file Sexual Orientation Not on file documented as of this encounter Plan of Treatment Not on file documented as of this encounter Visit Diagnoses Not on filedocumented in this encounter Care Teams Harpoon Engagement Planning Operator Relationship Specialty Start Date End Date Clinic - [facility] [address] [place] [address] PCP - General 01/25/20 documented as of this encounter
--- OUTSIDE RECORDS SUMMARY | 2023-05-29 11:37 | XMS_ITS | Continuity of Care Document ---
Author Name Unknown Organization [facility] Address [address] [place] [address] Phone Care Team Providers Care Home Care Provider Name Role Phone Ashlee Cummins Unavailable Unavailable [...] [place], [address], [place], [address] , [place] tel: [phone] No Information 3 [facility]. [facility], [address], [place], [address] , [place]. tel: [phone] [facility], [address], [place], [address] , [place] tel: [phone] [facility] No Information 3 [facility]. [facility], [address] [place] [address] 600, [place], [address] , [place]. tel: [phone] [facility], [address], [place], [address] , [place] tel: [phone] [facility] No Information 3 [facility]. [facility], [address] [place] [address] 600, [place], [address] , [place]. tel:[phone] OFFICE/OUTPAT IENT VISIT EST Phone [facility], [address], [place], [address] , [place] tel: [phone] [facility] Other intervertebral disc degeneration of lumbar regionOther spondylosis, lumbosacral region 3 [facility]. [facility], [address] [facility] [address], [place], [address] , [place]. tel: [phone] Referring Provider: Ashlee Lombardo, [facility] [address] [facility] [address], [place], [address] . tel:[phone] Office/Outpat ient Visit,Est, Mod [facility], [address], [place], [address] , [place] tel: [phone] [facility] Other intervertebral disc degeneration of lumbar regionOther spondylosis, lumbosacral region 3 Ernie Rosado. [facility], [address] [place] [address] 600, [place], [address] , [place]. tel: [phone] Referring Provider: Ashlee Lombardo, [facility] [place] [address], [place], [address] . tel:[phone] Office/Outpat ient Visit,Est, Mod [facility], [address], [place], [address] , [place] tel: [phone] [facility] Other intervertebral disc displacement, lumbar regionOther intervertebral disc degeneration of lumbar regionOther spondylosis, lumbosacral region 2 Ernie Rosado. [facility], [address] [place] [address] 600, [place], [address] , [place]. tel: [phone] Referring Provider: Ashlee Lombardo, [facility] [address] [place] [address], [place], [address] . tel:[phone] Office/Outpat ient Visit,Est, Mod [facility], [address], [place], [address] , [place] tel: [phone] [facility] Other intervertebral disc degeneration of lumbar regionOther intervertebral disc displacement, lumbar regionOther spondylosis, lumbosacral region 1 Ernie Rosado. [facility], [address] [facility] [address], [place], [address] , [place]. tel: [phone] Referring Provider: Ashlee Lombardo, [facility] [address] [place] [address] 600, [place], [address] . tel:[phone] Office/Outpat ient Visit,Est, Mod [facility], [address], [place], [address] , [place] tel: [phone] [facility] Other intervertebral disc displacement, lumbar regionOther intervertebral disc degeneration of lumbar regionOther spondylosis, lumbosacral region 0- 0 Ernie Geeher. [facility] [place], [address], [facility] [place], [address] , [place]. tel: [phone] Referring Provider: Ashlee Lombardo, [facility] [place] [address], [place], [address] . tel:[phone] Office/Outpat ient Visit,Est, Mod [facility], [address], [place], [address] , [place] tel: [phone] [facility] Other intervertebral disc displacement, lumbar regionOther intervertebral disc degeneration of lumbar region 9 Ernie Rosado. [facility], [address] [place] [address] 600, [place], [address] , [place]. tel: [phone] Referring Provider: Ashlee Lombardo, [facility] [address] [place] [address] 600, [place], [address] . tel:[phone] Office/Outpat ient Visit,Est, Mod [facility], [address], [place], [address] , [place] tel: [phone] [facility] Other intervertebral disc displacement, lumbar regionOther intervertebral disc degeneration of lumbar region 9 Ernie Rosado. [facility] [place], [address] [place] [address] 600, [place], [address] , [place]. tel: [phone] Referring Provider: Ashlee Lombardo, [facility] [address], [place], [address] . tel:[phone] Office/Outpat ient Visit,Est, Mod [facility], [address], [place], [address] , [place] tel: [phone] [facility] Other intervertebral disc degeneration of lumbar regionOther intervertebral disc displacement, lumbar region 9 Ernie Rosado. [facility] [place], [address], [place], [address] , [place]. tel: [phone] Referring Provider: Ashlee Lombardo, [facility] [place] [address], [place], [address] . tel:[phone] Office/Outpat ient Visit,Est, Mod [facility], [address], [place], [address] , [place] tel: [phone] [facility] Other intervertebral disc displacement, lumbar regionOther intervertebral disc degeneration of lumbar regionSacroiliitis 7 Ernie Rosado. [facility] [place], [address], [place], [address] , [place]. tel: [phone] Referring Provider: Ashlee Lombardo, [facility] [place] [address], [place], [address] . tel:[phone] Office/Outpat ient Visit,Est, Mod [facility], [address], [place], [address] , [place] tel: [phone] [facility] Other intervertebral disc displacement, lumbar region 7 Ernie Rosado. [facility] [place], [address] [place] [address] 600, [place], [address] , [place]. tel: [phone] Referring Provider: Referring Self, [address] [place] [address] [address], [place], [address]. tel:[phone] Office/Outpat ient Visit,Est, Mod [facility], [address], [place], [address] , [place] [phone] [facility] Other intervertebral disc displacement, lumbar region 6 Ernie Rosado. [facility], [address] [place] [address], [place], [address] , [place]. [phone] Referring Provider: Ashlee Lombardo, [facility] [address] [place] [address], [place], [address] . tel:[phone] Office/Outpat ient Visit,New, Mod [facility], [address], [place], [address] , [place] [phone] [facility] Other intervertebral disc displacement, lumbar regionRadiculopathy , lumbar region 6 Ernie Rosado. [facility], [address] [place] [address], [facility] [place], [address] , [place]. [phone] Referring Provider: Atiya Petersen, [facility] [address] [place], [address]. tel:[phone] Family History Family Member Type Diagnosis Age At Onset No Information Payers Payer name Insurance type Covered alliance party ID [place] [id number] [id number] [facility] 2021 CI [id number] Social History Type Description Quantity Date Captured Comments Sex Female Smoking Status No Information Chief Complaint And Reason For Visit No Information Reason For Referral Reason For Referral No Information Plan Of Treatment Date Type Action Status Future Order: Radiology Order Fa cet Joint Block Lumbar (FECETJNTBLKLUM), Ordered on: Ordered Future Order: Radiology Order AP -Mxf-Rhxg-Hbp Lum (APLatFlExL), Ordered on: Ordered History Of [...]
--- OUTSIDE RECORDS SUMMARY | 2023-05-29 11:37 | XMS_ITS | Referral Summary ---
Author Name Unknown Organization [facility] Address [address] [place] [address] Care Team Providers Care Pointer Machine Operator Name Role Phone Clinic - [facility] Primary Ca re Provider Encounters Date Type Department Care Team Description 05/02/2023 Travel from Last 3 Months Allergies Active Allergy Reactions Criticality Noted Date [...] Active Active Problems No known active problems Immunizations Name Administration Dates Next Due COVID-19 [...] Mass Index - - Plan of Treatment Not on file Care Teams Pointer Machine Operator Relationship Specialty Start Date End Date Clinic - [facility] [address] [place] [address] PCP - General 01/25/20
--- OUTSIDE RECORDS SUMMARY | 2023-05-29 11:37 | XMS_ITS | Encounter Summary ---
Author Name Unknown Organization [facility] Address [address] [place] [address] Care Team Providers Care Director Of Learning Name Role Phone No Ref-Primary, Physician Primary Care Provider Unavailable Clinic - [facility] Primary Ca re Provider Reason for Referral * - Closed Specialty Diagnoses / Procedures Referred By Contac t Referred To Contact Diagnoses Unspecified complication of , antepartum Aniya Sung MD [address] [address] Referral ID Status Reason Start Date Expiration Date Visits Re quested Visits Authorized [id number] Closed 09/03/2014 03/02/2015 1 1 Question Answer MF Location [facility] EULA 02/05/2015 Ultrasound Comprehensive US (>than 18 weeks GA) US PROC NONE MFM Issue Advanced Maternal Age *MUST request Genetic Counseling fax [phone] [facility] Comments >> Patient may proceed with recommendations for further testing as directed by the Maternal Medicine Specialist >> >> If requesting Echo: MFM will determine appropriate location for exam due to indication. >> If requesting Lung Maturity Amnio: If results indicate lung maturity, induction or C/S is recommended within 36 hours. Please schedule accordingly. Dear Patient: Please be aware that coverage of these services is subject to the terms and limitations of your health insurance plan. Call member services at your health plan with any benefit or coverage questions. Please bring the following to your appointment: >> Any x-rays, CTs or MRIs which have been performed. Contact the facility where they were done to arrange for pick and shovel worker prior to your scheduled appointment. Any new CT, MRI or other procedures ordered by your specialist must be performed at a [facility] facility or coordinated by your clinic's referral office. >> List of current medications >> This referral request >> Any documents/labs given to you for this referral Encounter Details Date Type Department Care Team (Late st Contact Info) Description 09/03/2014 Orders Only [facility] [place] [address] [place] [address] Aniya Sung MD [address] [place], [place] [address] Unspecified complication of , antepartum (Primary Dx) Social History Tobacco Use Types Packs/Day Years Used Date Smoking Tobacco: Never Assessed Sex and Gender Information Value Date Recorded Sex Assigned at Not on file Gender Identity Not on file Sexual Orientation Not on file documented as of this encounter Plan of Treatment Scheduled Referrals Name Type Priority Associated Diagnoses Orde r Schedule MAT MED CTR REFERRAL- Referral Routine Complication of , antepartum 1 Occurrences starting 09/03/2014 until 03/02/2015 documented as of this encounter Visit Diagnoses Diagnosis Unspecified complication of , antepartum- Primary documented in this encounter Additional Health Concerns Infection Onset Date Last Indicated Resolved Time Rule Out COVID-19 10/17/2019 10/17/2019 10/18/2019 3:10 PM CDT Rule Out COVID-19 06/18/2021 06/18/2021 06/20/2021 5:02 PM PLASTER PATTERNMAKER COVID-19 06/18/2021 06/18/2021 07/09/2021 11:4 1 PM PLASTER PATTERNMAKER Rule Out COVID-19 12/06/2021 12/06/2021 12/06/2021 5:20 PM CDT documented as of this encounter Care Teams Director Of Learning Relationship Specialty Start Date End Date No Ref-Primary, Physician PCP - General 09/04/14 7 Clinic - [facility] [address] [place] [address] PCP - General 01/25/20 documented as of this encounter
[2023-05-29 11:56] LABS: PCR FLU A POSITIVE PCR FLU A (Negative); PCR FLU B Negative PCR FLU B (Negative); PCR RSV Negative PCR RSV (Negative); SARS PCR* Negative SARS-CoV-2 (Negative)
== END 2023-05-29 12:39 | disposition home or self-care (01) ==
PROVIDERS: Emergency Provider Student in an Organized Health Care Education/Training Program; PCP Physician Assistant Medical
DX: J11.1 Influenza due to unidentified influenza virus with other respiratory manifestations (principal)
CPT/HCPCS: 87631; 99282; 99283

== ENCOUNTER 2023-09-13 13:38 | Outpatient (CLI) | payer OTHER, SELFPAY ==
--- OUTSIDE RECORDS SUMMARY | 2023-09-13 13:43 | XMS_ITS | Continuity of Care Document ---
Author Name Unknown Organization [facility] Address [address] [place] [address] Phone Care Team Providers Care Stitch Bonder Machine Operator Helper Name Role Phone Ashlee Cummins Unavailable Unavailable Allergies, Adverse Reactions, Alerts Substance Reaction Status Criticality venom-honey bee Active No Informati on Medications Medication Instructions Dosage Effective Dates (start - stop) Status Comments Neurontin 300 mg capsule TAKE 1 CAPSULE BY MOUTH EVERYDAY AT BEDTIME - Active diclofenac sodium 75 mg tablet,delayed release TAKE 1 TABLET BY ORAL ROUTE UP TO 2 TIMES PER DAY WITH FOOD - Active Medrol (Rupert) 4 mg tablets in a dose pack take by Oral route as written on package Not Available - Active prednisone 10 mg tablet take 4 tabs once daily x 5 days, 2 tabs once daily x 7 days, 1 tab once daily x 10 days. Take with food. - Active Mobic 15 mg tablet take 1 tablet by oral route every day with food - Active PRILOSEC (unknown strength) Not Available - Active TYLENOL (unknown strength) Not Available - Active Neurontin 300 mg capsule TAKE 1 CAPSULE BY MOUTH EVERYDAY AT BEDTIME - No Longer Active Procedures Procedure Date [...] [place], [address], [place], [address] , [place] tel: [phone] [facility] No Information 4 Ernie Rosado. [facility], [address], [place], [address] , [place]. tel: [phone] [facility], [address], [place], [address] , [place] tel: [phone] [facility] No Information 4 Ernie Rosado. [facility], [address], [place], [address] , [place]. tel: [phone] [facility], [address], [place], [address] , [place] tel: [phone] [facility] No Information 4 Jeffery Williamson . [facility], [address], [place], [address], [place]. tel: [phone] [facility], [address], [place], [address] , [place] tel: [phone] [facility] No Information 3 Klein [facility]. [facility], [address] [place] [address] 600, [place], [address] , [place]. tel: [phone] OFFICE/OUTPAT IENT VISIT EST Phone [facility], [address], [place], [address] , [place] tel: [phone] [facility] Other intervertebral disc degeneration of lumbar regionOther spondylosis, lumbosacral region 3 Ernie Geeher. [facility], [address], [place], [address] , [place]. tel: [phone] Referring Provider: Ashlee Lombardo, [facility] [place] [address], [place], [address] . tel:[phone] Office/Outpat ient Visit,Est, Mod [facility], [address], [place], [address] , [place] tel: [phone] [facility] Other intervertebral disc degeneration of lumbar regionOther spondylosis, lumbosacral region 3 Ernie Rosado. [facility] [place], [address], [place], [address] , [place]. tel: [phone] Referring Provider: Ashlee Lombardo, [facility] [address], [place], [address] . tel:[phone] Office/Outpat ient Visit,Est, Mod [facility], [address], [place], [address] , [place] tel: [phone] [facility] Other intervertebral disc displacement, lumbar regionOther intervertebral disc degeneration of lumbar regionOther spondylosis, lumbosacral region 2 Ernie Rosado. [facility] [place], [address], [place], [address] , [place]. tel: [phone] Referring Provider: Ashlee Lombardo, [facility] [place] [address], [place], [address] . tel:[phone] Office/Outpat ient Visit,Est, Mod [facility], [address], [place], [address] , [place] tel: [phone] [facility] Other intervertebral disc degeneration of lumbar regionOther intervertebral disc displacement, lumbar regionOther spondylosis, lumbosacral region 1 Ernie Rosado. [facility] [place], [address] [facility] [address] [facility] [address], [place], [address] , [place]. tel: [phone] Referring Provider: Ashlee Lombardo, [facility] [place] [address] [facility] [address], [place], [address] . tel:[phone] Office/Outpat ient Visit,Est, Mod [facility], [address], [place], [address] , [place] tel: [phone] [facility] Other intervertebral disc displacement, lumbar regionOther intervertebral disc degeneration of lumbar regionOther spondylosis, lumbosacral region 0 Ernie Rosado. [facility] [place], [address] [place] [address] 600, [place], [address] , [place]. tel: [phone] Referring Provider: Ashlee Lombardo, [facility] [address] [place] [address] 600, [place], [address] . tel:[phone] Office/Outpat ient Visit,Est, Mod [facility], [address], [place], [address] , [place] tel: [phone] [facility] Other intervertebral disc displacement, lumbar regionOther intervertebral disc degeneration of lumbar region 9 Ernie Rosado. [facility] [place], [address] [facility] [address], [place], [address] , [place]. tel: [phone] Referring Provider: Ashlee Lombardo, [facility] [address] [facility] [address], [place], [address] . tel:[phone] Office/Outpat ient Visit,Est, Mod [facility], [address], [place], [address] , [place] tel: [phone] [facility] Other intervertebral disc displacement, lumbar regionOther intervertebral disc degeneration of lumbar region 9 Ernie Rosado. [facility], [address], [place], [address] , [place]. tel: [phone] Referring Provider: Ashlee Lombardo, [facility] [address] [facility] [address], [place], [address] . tel:[phone] Office/Outpat ient Visit,Est, Mod [facility], [address], [place], [address] , [place] tel: [phone] [facility] Other intervertebral disc degeneration of lumbar regionOther intervertebral disc displacement, lumbar region 9 Ernie Rosado. [facility] [place], [address] [facility] [address], [place], [address] , [place]. tel: [phone] Referring Provider: Ashlee Lombardo, [facility] [address] [facility] [address], [place], [address] . tel:[phone] Office/Outpat ient Visit,Est, Mod [facility], [address], [place], [address] , [place] tel: [phone] [facility] Other intervertebral disc displacement, lumbar regionOther intervertebral disc degeneration of lumbar regionSacroiliitis 0 7 Ernie Rosado. [facility], [address] [facility] [address], [place], [address] , [place]. tel: [phone] Referring Provider: Ashlee Lombardo, [facility] [address] [facility] [address], [place], [address] . tel:[phone] Office/Outpat ient Visit,Est, Mod [facility], [address], [place], [address] , [place] tel: [phone] [facility] Other intervertebral disc displacement, lumbar region 7 Ernie Rosado. [facility] [place], [address], [place], [address] , [place]. tel: [phone] Referring Provider: Referring Self, [address] [place] [address] [address], [place], [address]. tel:[phone] Office/Outpat ient Visit,Est, Mod [facility], [address], [place], [address] , [place] tel: [phone] [facility] Other intervertebral disc displacement, lumbar region 6 Ernie Rosado. [facility] [place], [address], [place], [address] , [place]. tel: [phone] Referring Provider: Ashlee Lombardo, [address], [place], [address] . tel:[phone] Office/Outpat ient Visit,New, Mod [facility], [address], [place], [address] , [place] tel: [phone] [facility] Other intervertebral disc displacement, lumbar regionRadiculopathy , lumbar region 6 Ernie Rosado. [facility] [place], [address], [facility] [place] [address] , [place]. tel:[phone] Referring Provider: Atiya Petersen, [facility] [address] [place], [address]. tel:[phone] Family History Family Member Type Diagnosis Age At Onset No Information Payers Payer name Insurance type Covered republican [place] [id number] Out Of State [id number] [facility] HAI Allheriberto 2021 CI [id number] Social History Type Description Quantity Date Captured Comments Sex Female Smoking Status No Information Chief Complaint And Reason For Visit No Information Reason For Referral Reason For Referral No Information Plan Of Treatment Date Type Action Status Future Order: Radiology Order Fa cet Joint Block Lumbar (FECETJNTBLKLUM), Ordered on: Ordered Future Order: Radiology Order AP -Pjz-Bqnh-Men Lum (APLatFlExL), Ordered on: Ordered History Of [...]
--- OUTSIDE RECORDS SUMMARY | 2023-09-13 13:43 | XMS_ITS | Encounter Summary ---
Author Name Unknown Organization [facility] Address [address] [place] [address]. [place] [address] Care Team Providers Care Aluminum Shingle Roofer Name Role Phone Clinic - [facility] Primary Ca re Provider Encounter Details Date Type Department Care Team (Latest Contact Info) Description 09/08/2023 Travel Social History Tobacco Use Types Packs/Day [...] on filedocumented in this encounter Care Teams Aluminum Shingle Roofer Relationship Specialty Start Date End Date Clinic - [facility] [address] [place] [address] PCP - General 01/25/20 documented as of this encounter
--- OUTSIDE RECORDS SUMMARY | 2023-09-13 13:43 | XMS_ITS | Encounter Summary ---
Author Name Unknown Organization [facility] Address [address] [place] [address] Care Team Providers Care Rouge Miller Name Role Phone No Ref-Primary, Physician Primary Care Provider Unavailable Clinic - [facility] Primary Ca re Provider Reason for Referral * - Closed Specialty Diagnoses / Procedures Referred By Contac t Referred To Contact Diagnoses Unspecified complication of , antepartum Aniya Sung MD [address] [address] Referral ID Status Reason Start Date Expiration Date Visits Re quested Visits Authorized [id number] Closed 09/03/2014 03/02/2015 1 1 Question Answer MF Location [facility] EULA 02/05/2015 Ultrasound Comprehensive US (>than 18 weeks GA) US PROC NONE MFM Issue Advanced Maternal Age *MUST request Genetic Counseling fax [phone] [facility] Comments >> Patient may proceed with recommendations [...] where they were done to arrange for picker / packer prior to your scheduled appointment. Any new CT, MRI or other procedures ordered by your specialist must be performed at a [facility] facility or coordinated by your clinic's referral office. >> List of current medications >> This referral request >> Any documents/labs given to you for this referral Encounter Details Date Type Department Care Team (Late st Contact Info) Description 09/03/2014 Orders Only [facility] [place] [address] [place] [address] Aniya Sung MD [address] [facility] [address] [place], [place] [address] Unspecified complication of , antepartum (Primary Dx) [...] Out COVID-19 06/18/2021 06/18/2021 06/20/2021 5:02 PM SUB ACUTE CARE NURSE COVID-19 06/18/2021 06/18/2021 07/09/2021 11:4 1 PM SUB ACUTE CARE NURSE Rule Out COVID-19 12/06/2021 12/06/2021 12/06/2021 5:20 PM CDT documented as of this encounter Care Teams Rouge Miller Relationship Specialty Start Date End Date No Ref-Primary, Physician PCP - General 09/04/14 7 Clinic - [facility] [address] [place] [address] PCP - General 01/25/20 documented as of this encounter
--- OUTSIDE RECORDS SUMMARY | 2023-09-13 13:43 | XMS_ITS | Referral Summary ---
Author Name Unknown Organization [facility] Address [address] [place] [address] Care Team Providers Care Senior Java Web Developer Name Role Phone Clinic - [facility] Primary Ca re Provider Encounters Date Type Department Care Team Description 09/08/2023 Travel 09/08/2023 9:14 PM CDT - 09/08/2023 10:02 PM CDT Emergency [facility] Emergency Dept [address] [place] [address] Chriss Horner MD Non-recurrent acute suppurative otitis media of right ear without spontaneous rupture of tympanic membrane Discharge Disposition: Home or Self Care from Last 3 Months Allergies Active Allergy Reactions Criticality Noted Date Comments Bee Venom Anaphylaxis High 01/06/2020 Medications Medication Sig Dispensed Refills Start Date End Date Status EPINEPHrine (ANY BX GENERIC EQUIV) 0.3 MG/0.3ML injection 2-pack 09/03/2020 Active naproxen (NAPROSYN) 500 MG tablet Take 500 mg by mouth 06/09/2020 Active omeprazole (PRILOSEC) [address] capsule Take 20 mg by mouth 05/24/2021 Active loratadine-pseudo ePHEDrine (CLARITIN-D 12-HOUR) 5-120 MG 12 hr tabletIndications :Congestion of paranasal sinus Take 1 tablet by mouth 2 times daily 20 tablet 06/18/2021 Active amoxicillin (AMOXIL) 500 MG capsule Take 1 capsule (500 mg) by mouth 3 times daily for 7 days 21 capsule 09/08/2023 09/15/2023 Active amoxicillin (AMOXIL) 500 MG capsule Take 1 capsule (500 mg) by mouth 3 times daily for 7 days 21 capsule 09/08/2023 09/08/2023 Discontinued Active Problems No known active problems Immunizations Name Administration Dates Next Due COVID-19 MONOVALENT 12+ (Pfizer) 02/10/2021,12/2020,04/27/2020 Social History Tobacco Use Types Packs/Day Years [...] Sign Reading Time Taken Comments Blood Pressure 146/83 09/08/2023 9:11 PM CDT Pulse 71 09/08/2023 9:11 PM CDT Temperature 36.3 ??C (97.3 ??F) 09/08/2023 9:11 PM CD T Respiratory Rate 18 09/08/2023 9:11 PM CDT Oxygen Saturation 97% 09/08/2023 9:11 PM CDT Inhaled Oxygen Concentration - - Weight 74.8 kg (165 lb) 09/08/2023 9:11 PM CDT Height 157.5 cm (5' 2) 09/08/2023 9:11 PM CDT Body Mass Index 30.18 09/08/2023 9:11 PM CDT Plan of Treatment Not on file Care Teams Senior Java Web Developer Relationship Specialty Start Date End Date Clinic - [facility] [address] [place] [address] PCP - General 01/25/20
--- OUTSIDE RECORDS SUMMARY | 2023-09-13 13:43 | XMS_ITS | Clinical Summary ---
Author Name Unknown Organization [facility] Address [place], [place] [address] Care Team Providers Care Rig Mechanic Name Role Phone Kristyn Man MD Unavailable Unavailable [facility] Primary Care Provider Un available Allergies Active Allergy Reactions Criticality Noted Date Comments Venom-Honey Bee Anaphylaxis High 01/06/2020 Medications Medication Sig Dispensed Refills Start Date End Date Status acetaminophen (TYLENOL) 325 mg tablet Take 2 tablets by mouth every 4 hours if needed for Headache. Max acetaminophen dose: 4000mg in 24 hrs. 0 08/03/2009 Active gabapentin (NEURONTIN) 300 mg capsuleIndicatio ns:Chronic right-sided low back pain without sciatica TAKE 1 CAPSULE (300 MG) BY MOUTH THREE TIMES DAILY NEEDED 90 Capsule 3 06/20/2022 Active Additional Information Patient taking differently: 300 mgOralDAILY, Reported on 12/07/2022 azelastine 137 mcg/actuation (ASTELIN) nasal sprayIndications :Recurrent sinusitis INHALE 1 SPRAY INTO AFFECTED NOSTRIL(S) TWO TIMES DAILY. 30 mL 08/14/2022 Active EPINEPHrine (EPIPEN) 0.3 mg/0.3 mL auto-injector INJECT 0.3ML INTRAMUSCULARLY NEEDED A SINGLE DOSE MAY REPEAT ONCE 08/21/2022 Active omeprazole (PRILOSEC) 20 mg Delayed-Release capsuleIndicatio ns:Chronic GERD Take 1 Capsule (20 mg) by mouth once daily before a meal. 90 Capsule 2 12/07/2022 Active ferrous sulfate 325 mg delayed release tabletIndication s:Iron deficiency Take 1 Tablet (325 mg) by mouth once daily with a meal. 90 Tablet 3 12/07/2022 Active diclofenac (VOLTAREN) 75 mg delayed-release tabletIndication s:Acute pain of right knee TAKE 1 TABLET BY MOUTH TWO TIMES DAILY WITH MEALS 60 Tablet 12/25/2022 Active fluticasone (50 mcg per actuation) nasal solution (FLONASE)Indicat ions:Recurrent sinusitis INSTILL 2 SPRAYS TO BOTH NOSTRILS ONCE DAILY 48 mL 2 01/16/2023 Active clobetasol cream 0.05% (TEMOVATE) 0.05 % creamIndications :Hand dermatitis Apply topically to affected area(s) two times daily. For hands 30 g 05/27/2023 Active Active Problems Patient Care Coordination No te Formatting of this note migh t be different from the original. dheas and t estosterone May 2010 Problem Noted Date Diagnosed Date Skin tag of vulva 10/11/2022 Family history of breast cancer 07/19/2022 Overview: Sister- age 30 Pap smear for cervical cancer screening 01/26/20 Overview: 11/2021 NIL/HPV Negative Plan: Pap/HPV testing [...] and 09/13- good response and did IUI's Immunizations Name Administration Dates Next Due AMB Influenza, IIV4 PF (=>6 mos Flulaval,Fluzone Fluarix)(Flu Clinic Only) 02/24/2020 COVID-19 vaccine ([employer] 30mcg/0.3mL) PF, MDV 02/10/2021,05/14/2020,04/27/2020 Influenza RIV4 (Age [...] Cl in Term AB AB 2000 IAB 2004 SAB Last Filed Vital Signs Vital Sign Reading Time Taken Comments Blood Pressure 114/78 12/07/2022 1:32 PM CDT Pulse 72 12/07/2022 1:32 PM CDT Temperature 36.6 ??C (97.9 ??F) 07/19/2022 4 :16 PM CDT Respiratory Rate 16 05/30/2014 11:5 0 AM RETAIL FIELD SUPERVISOR Oxygen Saturation 100% 05/30/2014 11: 50 AM RETAIL FIELD SUPERVISOR Inhaled Oxygen Concentration - - Weight 81.8 kg (180 lb 4.8 oz) 12/08/19 23 1:32 PM CDT with shoes Height 158.1 cm (5' 2.25) 07/19/2022 4 :16 PM CDT Body Mass Index 32.71 07/19/2022 4:16 PM CDT Plan of Treatment Health Maintenance Due Date Last Done Comments HIV for age 15-65 1993 Hepatitis C screening for age 18-79 1996 COVID-19 vaccine series (2022- season) 2023 02/10/2021, 05/14/2020, 04/27/2020 Colonoscopy through age 75 2023 Lipids for age 45-75 2023 03/09/2010, 01/27/20 10 Mammogram for age 45-75 2023 BMI (ht and wt on same day) for age 18+ 07/20/2023 07/19/2022, 08/18/2021, 03/17/2020, Additional history exists Depression screening for age 12+ 07/20/2023 07/19/2022, 08/18/2021, 03/17/2020 Influenza for age 9-49 01/06/2024 2, 01/06/2021, 02/24/2020, Additional history exists Tetanus booster 09/01/2026 09/01/2016 Pap test for age 21-65 11/16/2026 2, 11/16/2021, 09/01/2016, Additional history exists Tdap Completed 09/01/2016 Pneumococcal series for age 6-64 Aged Out No longer eligible based on patient's age to complete this topic Procedures Procedure Name Priority Date/Time Associated Diagnosis Comments LOAN SECRETARY THIN PREP PAP SCREEN IMAGED Routine 11/16/2021 2:14 PM CDT Cervical cancer screening LIPID PANEL W REFLEX MEASURED LDL Routine 03/09/2010 8:31 AM CDT PCOS (polycystic ovarian syndrome) from Last 3 Months or Most Recently Relevant to Health Maintenance Results * LOAN SECRETARY THIN PREP PAP SCREEN IMAGED (11/16/2021 2:14 PM CDT) Case Report Gynecologic Cytology Report ? Case: [id number] ? Authorizing Provider: ??Miki Mendoza MD Collected: ? 11/16/2021 1414 ? Ordering Location: ? [facility] ?Received: ?11/16/2021 1518 ? Clinic ? First Screen: ?Pamella Suarez ? Specimen: ?LOAN SECRETARY ThinPrep Vial Screening, Cervical ? 12/01/2021 11:22 AM CDT [facility] INTERPRETATION/ RESULT NEGATIVE FOR INTRAEPITHELIAL LESION OR MALIGNANCY (NIL) (none) 12/01/2021 11:[address] [facility] LABOR[facility]-C ENTRAL LABORATORY IMEN ADEQUACY Satisfactory for evaluation No endocervical component seen 12/01/2021 11:22 AM CDT [facility] ENTRND LABORATORY HPV REQUEST HPV and PAP 12/01/2021 11:22 AM T [facility] ENTRAL LABORATORY Date of LMP 10/18/21 12/01/2021 11:22 AM T [facility] ENTRAL LABORATORY Last Pap Date 09/01/16 12/01/2021 11:22 AM T [facility] ENTRAL LABOR[facility] Last Pap Result NIL 11:22 AM CDT [facility] EN[facility]AL LAB[facility]ORY Abnormal Pap or [place] Bx in last 5 years No 12/01/2021 11:22 AM CDT [facility] ENTRAL LABORATORY Menstrual Status Irregular Periods 12/01/2021 11:[address] [facility] [place] Bx Done Today No 12/01/2021 11:22 AM T [facility] LAB[facility] Additional Information None given 12/01/2021 11:22 AM [facility] ENTRAL LABORATORY Comment: Cytology is screened at [facility] Laboratory - [address] [place] [address], [place] [address] and [facility] - [address] [place] [address] and [facility] - [address] [facility] [address] [place] [address] Interpreted at [facility] - [address], [place] [address] Automated Review Successful 12/01/2021 11:22 AM [facility] EN[facility] LAB[facility]ORY Comment:Specimen processed s uccessfully by automated poll clerk device, ThinPrep Imaging System, [employer] ANCILLARY TESTING LOAN SECRETARY HPV Ordered, Please see separate report 12/01/2021 11:22 AM [facility] Note The pap test is a screening technique, not a diagnostic procedure. It is used primarily to screen for squamous cancers and precursor lesions. Published studies have shown that it is subject to both false negative and false positive results. The pap test should not be used as the sole means to diagnose or exclude pre-malignant and malignant lesions. 12/01/2021 11:22 AM [facility] Other (Cervical) Non-Blood / Unknown 11/16/2021 2:14 PM CDT 11/16/2021 3:18 PM CDT Miki Mendoza MD PATHOLOGY/CYTOL OGY [facility] LABORATORY-CENTRAL LABORATORY [address] [place] [address], * (ABNORMAL) LIPID PANEL W REFLEX LDL (03/09/2010 8:31 AM CDT) CHOLESTEROL,TOTAL 140 110 - 199 mg/dL [facility] TRIGLYCERIDES 107 40 - 149 mg/dL [facility] HDL CHOLESTEROL 36(L) >40 mg/dL [facility] CHOL/HDL RATIO 3.89 [address] [facility] LDL CHOLESTEROL 83 <131 mg/dL [facility] PATIENT STATUS Fasting [facility] Blood specimen (specimen) BLOOD SPECIMEN / Unknown 03/09/2010 8:31 AM CDT 03/09/2010 8:26 AM CDT Kristyn Mna MD CHEMISTRY [facility] INTERNAL ZIP [address] [place] [id number] from Last 3 Months or Most Recently Relevant to Health Maintenance Care Teams Rig Mechanic Relationship Specialty Start Date End Date Andrés Lou Phys Of PCP - General 09/10/20 Kristyn Man MD Endocrinology Endocrinology 04/16/10
--- OUTSIDE RECORDS SUMMARY | 2023-09-13 13:43 | XMS_ITS | Clinical Summary ---
Author Name Unknown Organization [facility] Address [address] [place] [address] Care Team Providers Care Tempering Oven Operator Name Role Phone Clinic - [facility] Primary Ca re Provider Allergies Active Allergy Reactions Criticality [...] Discontinued Active Problems No known active problems Encounters Date Type Department Care Team Description 09/08/2023 9:14 PM CDT - 09/08/2023 10:02 PM CDT Emergency [facility] Emergency Dept [address] [place] [address] Chriss Horner MD Non-recurrent acute suppurative otitis media of right ear without spontaneous rupture of tympanic membrane Discharge Disposition: Home or Self Care 09/08/2023 Travel from Last 3 Months Immunizations Name [...] 09/08/2023 9:11 PM CDT Plan of Treatment Health Maintenance Due Date Last Done Comments ADVANCE CARE PLANNING 1978 ANNUAL REVIEW OF HM ORDERS 1978 CT COLONOGRAPHY 1978 FIT 1978 FLEX SIG 1978 GLUCOSE 1978 MAMMO SCREENING 1978 YEARLY PREVENTIVE VISIT 1978 sDNA (Cologuard) 1978 COLONOSCOPY 1988 COLORECTAL CANCER SCREENING 1988 HIV SCREENING 1993 HEPATITIS C SCREENING 1996 HEPATITIS B IMMUNIZATION (1 of 3 - 19+ 3-dose series) 1997 LIPID 2018 COVID-19 Vaccine ( season) 2023 02/10/2021, 05/14/2020, 04/27/2020 PHQ-2 (once per calendar year) 2023 PAP 11/16/2024 11/16/2021 DTAP/TDAP/TD IMMUNIZATION (2 - Td or Tdap) 09/01/2026 09/01/2016 INFLUENZA VACCINE Completed 01/04/2023, , 01/05/2022, Additional history exists HPV IMMUNIZATION Aged Out [...] age to complete this topic Care Teams Tempering Oven Operator Relationship Specialty Start Date End Date Clinic - [facility] [address] [place] [address] PCP - General 01/25/20
--- OUTSIDE RECORDS SUMMARY | 2023-09-13 13:43 | XMS_ITS | Encounter Summary ---
Author Name Unknown Organization [facility] Address [facility] [place] [address] Care Team Providers Care Industrial Engineering Name Role Phone Clinic - [facility] Primary Ca re Provider Reason for Visit * Reason Comments Otalgia Encounter Details Date Type Department Care Team (Late st Contact Info) Description 09/08/2023 9:14 PM CDT - 09/08/2023 10:02 PM CDT Emergency [facility] Emergency Dept [address] [place] [address] Chriss Horenr MD [facility] [address] [facility] [place] [address] [place] [address] Non-recurrent acute suppurative otitis media of right ear without spontaneous rupture of tympanic membrane Discharge Disposition: Home or Self Care Social History Tobacco Use Types Packs/Day Years Used Date Smoking Tobacco: Never Smokeless Tobacco: Never Adolescent Education Answer Date Record ed Getting School Help Needed Not on file 01/26 Sex and Gender Information Value Date Recorded Sex Assigned at Not on file Gender Identity Not on file Sexual Orientation Not on file documented as of this encounter Last Filed Vital Signs Vital Sign Reading [...] Mass Index 30.18 09/08/2023 9:11 PM CDT documented in this encounter Discharge Instructions * Attachments The following attachments cannot be sent through Care Everywhere. * Otitis Media (Angolan) documented in this encounter Medications at Time of Discharge Medication Sig Dispensed Refills Start Date End Date amoxicillin (AMOXIL) 500 MG capsule Take 1 capsule (500 mg) by mouth 3 times daily for 7 days 21 capsule 09/08/2023 09/15/2023 EPINEPHrine (ANY BX GENERIC EQUIV) 0.3 MG/0.3ML injection 2-pack 09/03/2020 loratadine-pseudoePHEDr ine (CLARITIN-D 12-HOUR) 5-120 MG 12 hr tabletIndications:Conge stion of paranasal sinus Take 1 tablet by mouth 2 times daily 20 tablet 06/18/2021 naproxen (NAPROSYN) 500 MG tablet Take 500 mg by mouth 06/09/2020 omeprazole (PRILOSEC) [address] capsule Take 20 mg by mouth 05/24/2021 documented as of this encounter ED Notes * Gina Urias RN - 09/08/2023 9:12 PM CDT Right ear pain since yesterday. Patient reports some clear liquid drainage noted. Triage Assessment (Adult) Row Name 09/08/232111 Triage Assessment Airway WDL WDL Respiratory WDL Respiratory WDL WDL Skin Circulation/Temperature WDL Skin Circulation/Temperature WDL WDL Cardiac WDL Cardiac WDL WDL Cardiac Rhythm NSR Peripheral/Neurovascular WDL Peripheral Neurovascular WDL WDL Cognitive/Neuro/Behavioral WDL Cognitive/Neuro/Behavioral WDL WDL * Chriss Horner MD - 09/08/2023 9:05 PM CDT History Chief Complaint: Otalgia APGE Ceron is a 43 year old female who presents to the ED with right ear soreness for about aday she also has a mild sore throat no fevers or chills. She might of had a little bit of clear drainage from that ear no fevers no chills Independent Historian: Patient Review of External Notes: None Medications: amoxicillin (AMOXIL) 500 MG capsule EPINEPHrine (ANY BX GENERIC EQUIV) 0.3 MG/0.3ML injection 2-pack loratadine-pseudoePHEDrine (CLARITIN-D 12-HOUR) 5-120 MG 12 hr tablet naproxen (NAPROSYN) 500 MG tablet omeprazole (PRILOSEC) [address] capsule Past Medical History: History reviewed. No pertinent past medical history. Past Surgical History: History reviewed. No pertinent surgical history. Physical Exam Patient Vitals for the past 24 hrs: BP Temp Temp src Pulse Resp SpO2 Height Weight 09/08/23 2111 (!) 146/83 97.3 ??F (36.3 ??C) Temporal 71 18 97 % 1.575 m (5' 2) 74.8 kg (165 lb) Physical Exam Constitutional: White female sitting no respiratory distress HENT: No signs of trauma. Right TM external auditory canal normal left TM pus is seen behind the eardrum in the inferior anterior position no obvious perforation of the TM and no drainage within the canal. Oropharynx is clear Eyes: EOM are normal. Pupils are equal, round, and reactive to light. Neck: Normal range of motion. No JVD present. No cervical adenopathy. Lymphadenopathy: No lymphadenopathy. Neurological: Alert and oriented to person, place, and time. Normal strength. Coordination normal. Skin: Skin is warm and dry. No rash noted. No erythema. Emergency Department Course Imaging: No orders to display Laboratory: Labs Ordered and Resulted from Time of ED Arrival to Time of ED Departure - No data to display Procedures None seen and evaluated none Emergency Department Course & Assessments: Interventions: Medications ibuprofen (ADVIL/MOTRIN) tablet 600 mg (600 mg Oral $Given 09/08/232143) amoxicillin (AMOXIL) capsule 500 mg (500 mg Oral $Given 09/08/232143) Assessments: Seen and evaluated Independent Interpretation (X-rays, CTs, rhythm strip): None Consultations/Discussion of Management or Tests: None none Social Determinants of Health affecting care: None Disposition: Discharge Impression & Plan Medical Decision Making: Patient presents with sore ear for 1 day and a mild sore throat her middle ear does appear infectedwith some pus visible I have started her on amoxicillin and Advil and she should have this rechecked in 2 to 3 days Diagnosis: ICD-10-CM 1. Non-recurrent acute suppurative otitis media of right ear without spontaneous rupture of tympanic membrane H66.001 Discharge Medications: Discharge Medication List as of 09/08/2023 9:54 PM START taking these medications Details amoxicillin (AMOXIL) 500 MG capsule Take 1 capsule (500 mg) by mouth 3 times daily for 7 days, Disp-21 capsule, R-0, E-Prescribe Chriss Horner MD 09/08/2023 No att. providers found Chriss Horner MD 09/08/23 6421 documented in this encounter Plan of Treatment Not on file documented as of this encounter Visit Diagnoses Diagnosis Non-recurrent acute suppurative otitis media of right ear without spontaneous rupture of tympanic membrane documented in this encounter Administered Medications Inactive Administered Medications - up to 3 most recent administrations Medication Order MAR Action Action Date Dose Rate Site amoxicillin (AMOXIL) capsule 500 mg STAT, 500 mg, Oral, ONCE, On 09/08/23 at 2140, For 1 dose, Indications: otitis media $Given 09/08/2023 9:44 PM CDT 500 mg ibuprofen (ADVIL/MOTRIN) tablet 600 mg 600 mg, Oral, ONCE, On 09/08/23 at 2140, For 1 dose, Give with food. $Given 09/08/2023 9:44 PM CDT 600 mg documented in this encounter Active and Recently Administered Medications Times are shown in CDT. Scheduled Medication Order 09/06/2023 09/07/2023 09/08/2023 amoxicillin (AMOXIL) capsule 500 mg (COMPLETED) STAT, 500 mg, Oral, ONCE, On 09/08/23 at 2140, For 1 dose, Indications: otitis media 2143 ($Given - Provi [facility]: Monique Amaro RN) ibuprofen (ADVIL/MOTRIN) tablet 600 mg (COMPLETED) 600 mg, Oral, ONCE, On 09/08/23 at 2140, For 1 dose, Give with food. 2144 ($Given - Provi [facility]: Monique Amaro RN) documented in this encounter Care Teams Industrial Engineering Relationship Specialty Start Date End Date Clinic - [facility] [address] [place] [address] PCP - General 01/25/20 documented as of this encounter
[2023-09-13 22:40] LABS: Chlamydia DNA Amplified* NOT DETECTED (No Detected); GC DNA Amplified* NOT DETECTED (No Detected)
== END 2023-09-13 13:39 | disposition home or self-care (01) ==
LOC: LKVREF 13:38
PROVIDERS: PCP Physician Assistant Medical; Visit Provider Physician Assistant Medical
DX: Z00.00 Encounter for general adult medical examination without abnormal findings (principal); Z11.3 Encounter for screening for infections with a predominantly sexual mode of transmission
CPT/HCPCS: 87491; 87591

== ENCOUNTER 2023-10-16 12:38 | Outpatient (CLI) | payer OTHER, SELFPAY ==
--- OUTSIDE RECORDS SUMMARY | 2023-10-16 12:41 | XMS_ITS | Continuity of Care Document ---
Author Organization [facility] Address [address] [place] [address] Phone Care Team Providers Care Calender Roll Press Operator Name Role Phone Ashlee Cummins Unavailable Unavailable [...] [place], [address], [place], [place], [address] , [place] tel: [phone] [facility] No Information 4 Ernie Rosado. [facility], [address] [place] [address] [address], [place], [address] , [place]. tel: [phone] [facility], [address], [place], [address] , [place] tel: [phone] [facility] No Information 4 Ernie Ashlee. [facility], [address] [place] [address] 600, [place], [address] , [place]. tel: [phone] [facility], [address], [place], [address] , [place] tel: [phone] [facility] No Information 4 Jeffery Williamson . [facility], [address], [place], [address], [place]. tel: [phone] [facility], [address], [place], [address] , [place] tel: [phone] [facility] [place] No Information 3 Klein Ashlee. [facility], [address] [place] [address] 600, [place], [address] , [place]. tel: [phone] OFFICE/OUTPAT IENT VISIT EST Phone [facility], [address], [place], [address] , [place] tel: [phone] [facility] Other intervertebral disc degeneration of lumbar regionOther spondylosis, lumbosacral region 3 Ernie Ashlee. [facility], [address], [place], [address] , [place]. tel: [phone] Referring Provider: Ashlee Lombardo, [facility] [place] [address], [place], [address] . tel:[phone] Office/Outpat ient Visit,Est, Mod [facility], [address], [place], [address] , [place] tel: [phone] [facility] Other intervertebral disc degeneration of lumbar regionOther spondylosis, lumbosacral region 3 Ernie Rosado. [facility] [place], [address], [place], [address] , [place]. tel: [phone] Referring Provider: Ashlee Lombardo, [facility] [place] [address], [place], [address] . tel:[phone] Office/Outpat ient Visit,Est, Mod [facility], [address], [place], [address] , [place] tel: [phone] [facility] Other intervertebral disc displacement, lumbar regionOther intervertebral disc degeneration of lumbar regionOther spondylosis, lumbosacral region 2 Ernie Rosado. [facility], [address], [place], [address] , [place]. tel: [phone] Referring Provider: Ashlee Lombardo, [facility] [place] [address], [place], [address] . tel:[phone] Office/Outpat ient Visit,Est, Mod [facility], [address], [place], [address] , [place] tel: [phone] [facility] Other intervertebral disc degeneration of lumbar regionOther intervertebral disc displacement, lumbar regionOther spondylosis, lumbosacral region 1 Ernie Rosado. [facility], [address] [facility] [address], [place], [address] , [place]. tel: [phone] Referring Provider: Ashlee Lombardo, [facility] [place] [address] [facility] [address], [place], [address] . tel:[phone] Office/Outpat ient Visit,Est, Mod [facility], [address], [place], [address] , [place] tel: [phone] [facility] Other intervertebral disc displacement, lumbar regionOther intervertebral disc degeneration of lumbar regionOther spondylosis, lumbosacral region 0 Ernie Rosado. [facility] [place], [address] [place] [address] 600, [place], [address] , [place]. tel: [phone] Referring Provider: Ashlee Lombardo, [facility] [address] [place] [address] 600, [place], [address] . tel:[phone] Office/Outpat ient Visit,Est, Mod [facility], [address], [place], [address] , [place] tel: [phone] [facility] Other intervertebral disc displacement, lumbar regionOther intervertebral disc degeneration of lumbar region 9 Ernie Rosado. [facility] [place], [address] [facility] [address], [place], [address] , [place]. tel: [phone] Referring Provider: Ashlee Lombardo, [facility] [place] [address] [facility] [address], [place], [address] . tel:[phone] Office/Outpat ient Visit,Est, Mod [facility], [address], [place], [address] , [place] tel: [phone] [facility] Other intervertebral disc displacement, lumbar regionOther intervertebral disc degeneration of lumbar region 9 Ernie Rosado. [facility], [address], [place], [address] , [place]. tel: [phone] Referring Provider: Ashlee Lombardo, [facility] [address] [facility] [address], [place], [address] . tel:[phone] Office/Outpat ient Visit,Est, Mod [facility], [address], [place], [address] , [place] tel: [phone] [facility] Other intervertebral disc degeneration of lumbar regionOther intervertebral disc displacement, lumbar region 9 Ernie Rosado. [facility] [place], [address] [facility] [address], [place], [address] , [place]. tel: [phone] Referring Provider: Ashlee Lombardo, [facility] [address], [place], [address] . tel:[phone] Office/Outpat ient Visit,Est, Mod [facility], [address], [place], [address] , [place] tel: [phone] [facility] Other intervertebral disc displacement, lumbar regionOther intervertebral disc degeneration of lumbar regionSacroiliitis 7 Ernie Rosado. [facility], [address], [place], [address] , [place]. tel: [phone] Referring Provider: Ashlee Lombardo, [facility] [address], [place], [address] . tel:[phone] Office/Outpat ient Visit,Est, Mod [facility], [address], [place], [address] , [place] tel: [phone] [facility] Other intervertebral disc displacement, lumbar region 7 Klien Ashlee. [facility] [place], [address], [place], [place], [address] , [place]. tel: [phone] Referring Provider: Referring Self, [address] [place] [address] [address], [place], [address]. tel:[phone] Office/Outpat ient Visit,Est, Mod [facility], [address], [place], [address] , [place] tel: [phone] [facility] Other intervertebral disc displacement, lumbar region 6 Ernie Rosado. [facility] [place], [address], [place], [place], [address] , [place]. tel:[phone] Referring Provider: Ashlee Lombardo, [facility] [address], [place], [address] . tel:[phone] Office/Outpat ient Visit,New, Mod [facility], [address], [place], [place], [address] , [place] tel: [phone] [facility] Other intervertebral disc displacement, lumbar regionRadiculopathy , lumbar region 6 Ernie Rosado. [facility] [place], [address], [facility] [place], [address] , [place]. tel:[phone] Referring Provider: [facility] [address] [place], [address]. tel:[phone] Family History Family Member Type Diagnosis Age At Onset No Information Payers Payer name Insurance type Covered green [place] [id number] [place] [id number] [facility] HAI Allheriberto 2021 CI [id number] Social History Type Description Quantity Date Captured Comments Sex Female Smoking Status No Information Chief Complaint And Reason For Visit No Information Reason For Referral Reason For Referral No Information Plan Of Treatment Date Type Action Status Future Order: Radiology Order Fa cet Joint Block Lumbar (FECETJNTBLKLUM), Ordered on: Ordered Future Order: Radiology Order AP -Aus-Rbfz-Pjm Lum (APLatFlExL), Ordered on: Ordered History Of [...]
--- OUTSIDE RECORDS SUMMARY | 2023-10-16 12:41 | XMS_ITS | Encounter Summary ---
Author Organization [facility] Address [facility] [place] [address] Care Team Providers Care Television Maintenance Worker Name Role Phone Clinic - [facility] Primary Ca re Provider Reason for Visit * Reason Comments Otalgia Encounter Details Date Type Department Care Team (Late st Contact Info) Description 09/08/2023 9:14 PM CDT - 09/08/2023 10:02 PM CDT Emergency [facility] Emergency Dept [address] [place] [address] Chriss Horner MD [facility] [address] [facility] [address] [address] Non-recurrent acute suppurative otitis media of [...] sent through Care Everywhere. * Otitis Media (Prydeinig) documented in this encounter Medications at Time of Discharge Medication Sig Dispensed Refills Start Date End Date EPINEPHrine (ANY BX GENERIC EQUIV) 0.3 MG/0.3ML injection 2-pack 09/03/2020 loratadine-pseudoePHEDr ine (CLARITIN-D 12-HOUR) 5-120 MG 12 hr tabletIndications:Conge stion of paranasal sinus Take 1 tablet by mouth 2 times daily 20 tablet 06/18/2021 naproxen (NAPROSYN) 500 MG tablet Take 500 mg by mouth 06/09/2020 omeprazole (PRILOSEC) [address] capsule Take 20 mg by mouth 05/24/2021 amoxicillin (AMOXIL) 500 MG capsule Take 1 capsule (500 mg) by mouth 3 times daily for 7 days 21 capsule 09/08/2023 09/15/2023 documented as of this encounter ED Notes [...] 9:05 PM CDT History Chief Complaint: Otalgia HPI Suad Ceron is a 43 year old female [...] att. providers found Chriss Horner MD 09/08/23 9621 documented in this encounter Plan of Treatment [...] RN) documented in this encounter Care Teams Television Maintenance Worker Relationship Specialty Start Date End Date [facility] [address] [place] [address] PCP - General 01/25/20 documented as of this encounter
--- OUTSIDE RECORDS SUMMARY | 2023-10-16 12:41 | XMS_ITS | Clinical Summary ---
Author Organization [facility] Address [address] [place] [address] Care Team Providers Care Grade Setter Name Role Phone Clinic - [facility] Primary Ca re Provider Allergies Active Allergy Reactions Criticality Noted Date Comments Bee Venom Anaphylaxis High 01/06/2020 Medications Medication Sig Dispensed Refills Start Date End Date Status EPINEPHrine (ANY BX GENERIC EQUIV) 0.3 MG/0.3ML injection 2-pack 09/03/2020 Active naproxen (NAPROSYN) 500 MG tablet Take 500 mg by mouth 06/09/2020 Active omeprazole (PRILOSEC) [address] capsule Take 20 mg by mouth 05/24/2021 Active loratadine-pseudoePHE Drine (CLARITIN-D 12-HOUR) 5-120 MG 12 hr tabletIndications:Con gestion of paranasal sinus Take 1 tablet by mouth 2 times daily 20 tablet 06/18/2021 Active Active Problems No known active problems Encounters Date Type Department Care Team Description 09/08/2023 9:14 PM CDT - 09/08/2023 10:02 PM CDT Emergency [facility] Emergency Dept [address] [place] [address] Chriss Horner MD Non-recurrent acute [...] age to complete this topic Care Teams Grade Setter Relationship Specialty Start Date End Date Clinic - [facility] [address] [place] [address] PCP - General 01/25/20
--- OUTSIDE RECORDS SUMMARY | 2023-10-16 12:41 | XMS_ITS | Encounter Summary ---
Author Organization [facility] Address [address] [place] [address]. [place] [address] Care Team Providers Care Center Machine Operator Name Role Phone Clinic - [facility] Primary Ca re Provider Encounter Details [...] on filedocumented in this encounter Care Teams Center Machine Operator Relationship Specialty Start Date End Date Clinic - [facility] [address] [place] [address] PCP - General 01/25/20 documented as of this encounter
--- OUTSIDE RECORDS SUMMARY | 2023-10-16 12:41 | XMS_ITS | Clinical Summary ---
Author Organization [facility] Address [place], [place] [address] Care Team Providers Care Industrial Maintenance Repairer Helper Name Role Phone Kristyn Man MD Unavailable Unavailable [facility] Primary Care Provider Un available Allergies [...] Encounters Date Type Department Care Team Description 09/14/2023 Lab Requisition [facility] [phone] Brianda Burleson PA-C from Last 3 Months Immunizations Name Administration Dates Next Due AMB Influenza, IIV4 PF (=>6 mos Flulaval,Fluzone Fluarix)(Flu Clinic Only) 02/24/2020 COVID-19 vaccine (Frequent Browser 30mcg/0.3mL) PF, MDV 02/10/2021,05/14/2020,04/27/2020 Influenza RIV4 (Age [...] Outcome GA Total Labor Labor/2nd/3rd Weight Sex Type Anes PTL Akanksha A1 A5 Name Clin Term C-Secti on AB AB 2000 IAB 2004 SAB Last Filed Vital Signs Vital Sign Reading Time Taken Comments Blood Pressure 114/78 12/07/2022 1:32 PM CDT Pulse 72 12/07/2022 1:32 PM CDT Temperature 36.6 ??C (97.9 ??F) 07/19/2022 4 :16 PM CDT Respiratory Rate 16 05/30/2014 11:5 0 AM BANKRUPTCY ASSISTANT Oxygen Saturation 100% 05/30/2014 11: 50 AM BANKRUPTCY ASSISTANT Inhaled Oxygen Concentration - - Weight 81.8 [...] series ( season) 2023 02/10/2021, 05/14/2020, 04/27/2020 Colonoscopy through [...] 09/01/2026 09/01/2016 Pap test for age 21-65 09/12/2028 4, 09/13/2023, 11/16/2021, Additional history exists Tdap Completed 09/01/2016 Pneumococcal series for age 6-64 Aged Out No longer eligible based on patient's age to complete this topic Procedures Procedure Name Priority Date/Time Associated Diagnosis Comments LAB TRACKING EVENT Routine 09/13/2023 1: 45 PM CDT RADIO TECHNICIAN THIN PREP PAP SCREEN IMAGED Routine 09/13/2023 1:45 PM CDT HPV THIN PREP Routine 09/13/2023 1:45 PM CDT LIPID PANEL W REFLEX MEASURED LDL Routine 03/09/2010 8:31 AM CDT PCOS (polycystic ovarian syndrome) from Last 3 Months or Most Recently Relevant to Health Maintenance Results * LAB TRACKING EVENT (09/13/2023 1:45 PM CDT) Other (Other) Client Collect / Unknown 09/13/2023 1:45 PM CDT 09/15/2023 8:31 AM CDT Brianda Burleson PA-C LAB BILL ONLY [facility] [address] [place] [address], * RADIO TECHNICIAN THIN PREP PAP SCREEN IMAGED (09/13/2023 1:45 PM CDT) Case Report Gynecologic Cytology Report ? Case: [id number] ? Authorizing Provider: ??Brianda Burleson PA-C ?Collected: ? 09/13/2023 1345 ? Ordering Location: ? [facility] ?Received: ?09/17/2023 08 ? First Screen: ?Luisa Lau ? Rescreen: ?Neo Mclain ? Specimen: ?RADIO TECHNICIAN ThinPrep Vial Screening, Cervical ? 09/27/2023 6:47 AM CDT [facility] INTERPRETATION/ RESULT NEGATIVE FOR INTRAEPITHELIAL LESION OR MALIGNANCY (NIL) (none) 09/27/2023 6:47 AM [facility] NISM(S) Fungal organisms morphologically consistent with Yamilka species 09/27/2023 6:47 AM CDT [facility] SPECIMEN ADEQUACY Satisfactory for evaluation Endocervical component present 09/27/2023 6:47 AM [facility] HPV REQUEST HPV and PAP 09/27/2023 6:47 AM [facility] Date of LMP 09/27/2023 6:47 AM [facility] Comment:Unknown Last Pap Date 09/01/2016 09/27/2023 6:47 AM [facility] Last Pap Result NIL 6:47 AM [facility] Additional Information 09/27/2023 6:47 AM [facility] Comment: Interpreted at [facility] - [address], [place] [address] Automated Review Successful 09/27/2023 6:47 AM [facility] Comment:Specimen processed s uccessfully by automated economic historian device, ThinPrep Imaging System, [employer] ANCILLARY TESTING RADIO TECHNICIAN HPV Ordered, Please see separate report 09/27/2023 6:47 AM [facility] Note The pap test is a screening technique, not a diagnostic procedure. It is used primarily to screen for squamous cancers and precursor lesions. Published studies have shown that it is subject to both false negative and false positive results. The pap test should not be used as the sole means to diagnose or exclude pre-malignant and malignant lesions. 09/27/2023 6:47 AM CDT [facility] Other (Cervical) 09/13/2023 1:45 PM CDT 09/17/2023 8:52 AM CDT Brainda Burleson PA-C PATHOLOGY/CYTOLOGY Performing Organization Address [facility] Co de Phone Number [facility] [address] [place] [address], * HPV HIGH RISK (09/13/2023 1:45 PM CDT) TYPE 16 Negative Negative 09/18/2023 1:48 PM CDT [facility] TYPE 18 Negative Negative 09/18/2023 1:48 PM CDT [facility] OTHER HIGH RISK TYPES Negative Negative 09/18/2023 1:48 PM CDT [facility] Other (Cervical) 09/13/2023 1:45 PM CDT 09/17/2023 8:52 AM CDT Narrative [facility] - 09/18/2023 1:48 PM CDT HPV types 16, 18, 31, 33, 35, 39, 45, 51, 52, 56, 58, 59, 66 and 68 DNA were undetectable or below the pre-set threshold. Methodology: Sowmya Fawad 4800 HPV Test Brianda Burleson PA-C MICROBIOLOGY Performing Organization Address [facility] Co de Phone Number [facility] [address] [place] [address], * (ABNORMAL) LIPID PANEL W REFLEX LDL (03/09/2010 8:31 AM CDT) CHOLESTEROL,TOTAL 140 110 - 199 mg/dL [facility] TRIGLYCERIDES 107 40 - 149 mg/dL [facility] HDL CHOLESTEROL 36(L) >40 mg/dL [facility] CHOL/HDL RATIO 3.89 <4.[address] [facility] LDL CHOLESTEROL 83 <131 mg/dL [facility] PATIENT STATUS Fasting FEOT Kir[facility] Blood specimen (specimen) BLOOD SPECIMEN / Unknown 03/09/2010 8:31 AM CDT 03/09/2010 8:26 AM CDT Kristyn Man MD CHEMISTRY [facility] INTERNAL ZIP [address] [address] from Last 3 Months or Most Recently Relevant to Health Maintenance Care Teams Industrial Maintenance Repairer Helper Relationship Specialty Start Date End Date Andrés Lou Of PCP - General 09/10/20 Kristyn Man MD Endocrinology Endocrinology 04/16/10
--- OUTSIDE RECORDS SUMMARY | 2023-10-16 12:41 | XMS_ITS | Encounter Summary ---
Author Organization [facility] Address [address] [place] [address] Care Team Providers Care Chief Passenger Ship Steward/Stewardess Name Role Phone No Ref-Primary, Physician Primary Care Provider Unavailable Clinic - [facility] Primary Ca re Provider Reason for Referral * - Closed Specialty Diagnoses / Procedures Referred By Contac t Referred To Contact Diagnoses Unspecified complication of , antepartum Aniya Sung MD [address] [address] Referral ID Status Reason Start Date Expiration Date Visits Re quested Visits Authorized [id number] Closed 09/03/2014 03/02/2015 1 1 Question Answer MF Location [facility] EULA 02/05/2015 Ultrasound Comprehensive US (>than 18 weeks GA) US PROC NONE MFM Issue Advanced Maternal Age *MUST request Genetic Counseling fax [phone] [facility] Comments >> Patient may [...] where they were done to arrange for order picker/assembler prior to your scheduled appointment. Any new CT, MRI or other procedures ordered by your specialist must be performed at a [facility] facility or coordinated by your clinic's referral office. >> List of current medications >> This referral request >> Any documents/labs given to you for this referral Encounter Details Date Type Department Care Team (Late st Contact Info) Description 09/03/2014 Orders Only [facility] [place] [address] [place] [address] Aniya Sung MD [address] [facility] [address] [place], [place] [address] Unspecified complication of , antepartum (Primary Dx) [...] Out COVID-19 06/18/2021 06/18/2021 06/20/2021 5:02 PM CHEMICAL DEPENDENCY THERAPIST COVID-19 06/18/2021 06/18/2021 07/09/2021 11:4 1 PM CHEMICAL DEPENDENCY THERAPIST Rule Out COVID-19 12/06/2021 12/06/2021 12/06/2021 5:20 PM CDT documented as of this encounter Care Teams Chief Passenger Ship Steward/Stewardess Relationship Specialty Start Date End Date No Ref-Primary, Physician PCP - General 09/04/14 7 Clinic - [facility] [address] [place] [address] PCP - General 01/25/20 documented as of this encounter
--- OUTSIDE RECORDS SUMMARY | 2023-10-16 12:41 | XMS_ITS | Referral Summary ---
Author Organization [facility] Address [address] [place] [address] Care Team Providers Care Glaze Grinder Name Role Phone Clinic - [facility] Primary Ca re Provider Encounters Date Type Department Care Team Description 09/08/2023 Travel 09/08/2023 9:14 PM CDT - 09/08/2023 10:02 PM CDT Emergency [facility] Emergency Dept [address] [place] [address] Chriss Horner MD Non-recurrent acute [...] of Treatment Not on file Care Teams Glaze Grinder Relationship Specialty Start Date End Date Clinic - [facility] [address] [place] [address] PCP - General 01/25/20
--- NOTE | 2023-10-16 13:00 | CRLHL7_ITS ---
For Patients: As a result of the Cures Act, medical imaging exams and procedure reports are released immediately into your electronic medical record. You may view this report before your referring provider. If you have questions, please contact your health care provider. BILATERAL SCREENING MAMMOGRAM WITH COMPUTER-AIDED DETECTION AND TOMOSYNTHESIS TECHNIQUE: CC and MLO views were obtained. These mammographic images have been obtained using full-field digital technique. These mammographic images were interpreted with the benefit of computer-aided detection. Breast Tomosynthesis was used in this interpretation. COMPARISON FILM: 08/29/22, 11/22/21, 10/25/20. FINDINGS: The breasts are heterogeneously dense, which may obscure small masses IMPRESSION: There is no radiographic evidence for malignancy. ASSESSMENT: BI-RADS Category 1: Negative RECOMMENDATION: Routine screening mammogram in 1 year. A lay language report of this examination will be provided to the patient. AGNES PLAZA M.D. Diagnostic/Nuclear Medicine Radiologist [email or web address] JOSH:senait Transcribed: 2:21 p.mManda sapp/Dictated by: Agnes Plaza MD @ 10/18/2023 8:58:00 AM (Electronically Signed)
== END 2023-10-16 12:39 | disposition home or self-care (01) ==
LOC: MAMMO 12:38
PROVIDERS: PCP Physician Assistant Medical; Visit Provider Physician Assistant Medical
DX: Z12.31 Encounter for screening mammogram for malignant neoplasm of breast (principal); R92.2 Inconclusive mammogram
CPT/HCPCS: 77063; 77067

== ENCOUNTER 2024-09-11 07:30 | Outpatient (CLI) | payer OTHER, SELFPAY | END 2024-09-11 07:31 | disposition home or self-care (01) | LOC: NFLDREF 09-19 18:35 | PROVIDERS: PCP Physician Assistant Medical; Referring Provider Physician Assistant Medical; Visit Provider Physician Assistant Medical | DX: E55.9 Vitamin D deficiency, unspecified (principal); E78.1 Pure hyperglyceridemia | CPT/HCPCS: 80053; 80061; 82306 ==

== ENCOUNTER 2024-10-27 12:37 | Outpatient (CLI) | payer OTHER, SELFPAY ==
--- NOTE | 2024-10-27 13:00 | CRLHL7_ITS ---
For Patients: As a result of the Cures Act, medical imaging exams and procedure reports are released immediately into your electronic medical record. You may view this report before your referring provider. If you have questions, please contact your health care provider. COMPARISON: 10/16/2023, 08/29/2022, 11/22/2021 TECHNIQUE: Digital mammogram in CC and MLO projections including computer-aided detection (CAD) and tomosynthesis. BREAST COMPOSITION: The breasts are heterogeneously dense, which may obscure small masses. FINDINGS: No suspicious findings. ASSESSMENT: BI-RADS 1 Negative RECOMMENDATION: Annual screening mammogram. A lay language report of this examination will be provided to the patient. Dictated by: Francis Bowens MD @ 10/28/2024 11:56:02 (Electronically Signed)
== END 2024-10-27 12:38 | disposition home or self-care (01) ==
LOC: MAMMO 12:38
PROVIDERS: PCP Physician Assistant Medical; Visit Provider Physician Assistant Medical
DX: Z12.31 Encounter for screening mammogram for malignant neoplasm of breast (principal); R92.333 Mammographic heterogeneous density, bilateral breasts
CPT/HCPCS: 77063; 77067

== ENCOUNTER 2025-01-07 10:30 | Outpatient (CLI) | payer OTHER, SELFPAY ==
--- NOTE | 2025-01-07 10:45 | CRLHL7_ITS ---
For Patients: As a result of the Century Cures Act, medical imaging exams and procedure reports are released immediately into your electronic medical record. You may view this report before your referring provider. If you have questions, please contact your health care provider. RIGHT DIAGNOSTIC MAMMOGRAM WITH COMPUTER-AIDED DETECTION AND TOMOSYNTHESIS RIGHT BREAST ULTRASOUND CLINICAL HISTORY: RIGHT breast lump. COMPARISON: 10/27/2024, 10/16/2023, 08/29/2022. TECHNIQUE: Digital RIGHT mammogram in four projections with computer-aided detection. Tomosynthesis was used in this interpretation. Real-time ultrasound imaging of RIGHT breast with imaging documentation. BREAST COMPOSITION: The breasts are heterogeneously dense, which may obscure small masses. FINDINGS: 3D CC/MLO RIGHT mammogram images submitted. No suspicious masses or architectural distortion. No suspicious calcifications or adenopathy. Targeted RIGHT breast ultrasound performed at 11 o`clock 1 cm from the nipple. Normal dense fibroglandular tissue. No fibrocystic change or mass. IMPRESSION: No suspicious findings. No evidence of malignancy. RECOMMENDATIONS: Routine screening mammography. A lay language report of this examination will be provided to the patient. BI-RADS Category 2: Benign Dictated by Francis Bowens MD @ 01/07/2025 12:00:53 PM /sp SP/Dictated by: Francis Bowens MD @ 01/07/2025 12:00:00 PM (Electronically Signed)
--- NOTE | 2025-01-07 11:15 | CRLHL7_ITS ---
For Patients: As a result of the Century Cures Act, medical imaging exams and procedure reports are released immediately into your electronic medical record. You may view this report before your referring provider. If you have questions, please contact your health care provider. PLEASE SEE RIGHT BREAST DIAGNOSTIC MAMMOGRAM PERFORMED SAME DAY. CRL:sp SP/Dictated by: Francis Bowens MD @ 01/07/2025 11:52:00 AM (Electronically Signed)
== END 2025-01-07 10:31 | disposition home or self-care (01) ==
LOC: MAMMO 10:31
PROVIDERS: PCP Physician Assistant Medical; Visit Provider Physician Assistant Medical
DX: N63.10 Unspecified lump in the right breast, unspecified quadrant (principal); R92.333 Mammographic heterogeneous density, bilateral breasts
CPT/HCPCS: 76642; 77065; G0279